=== PATIENT | female | born 1950 | race Caucasian/White ===

== ENCOUNTER 2016-11-27 04:49 | Emergency (ER) | payer MEDICARE ==
[~2016-11-27] VITALS: Ht 157.5 cm; Wt 63.6 kg
[~2016-11-27 04:49] MED LIST: ASPERCREME1 EACH TP; ASPIRIN 32325 MG/TAB PO; B-COMPLEX VITAM1 TAB PO; BACTRIM DS 8001 TAB PO; BENADRYL; CEFTIN500 MG PO; CIPRO 500MG TA500 MG PO; CO Q-1050 MG; COENZYME Q-1010 MG PO; DARVOCET-N-101 UDTAB PO; FLEXERIL 1010 MG/TAB PO; FLEXERIL10 MG PO; HYDROCODONE/APAP; LEVAQUIN 5500 MG/TA1 PO; LORTAB 5/500 501 TAB; MACROBID 1100 MG/CAP; MACROBID 1100 MG/CAP PO; MEDROL; MVI; NAPROSYN500 MG PO; NO HOME MEDICATIONS; NORCO 325 MG-51 TAB PO; NORCO 325 MG-7.1 TAB PO; OMEGA 31000 MG PO; PHENERGAN 25 TA25 MG PO; PHENERGAN25 MG RC; PREDNISONE20 MG PO; PROBIOTIC FORMU1 CAP PO; PROTONIX 40MG T40 MG PO; ULTRAM 50MG TAB50 MG PO; VIT C; VITAMIN B COMPL1 T16 PO; VITAMIN C BUFF500 MG PO; VITAMIN C PUR1000 MG PO; VITAMIN C500 MG PO; VITAMINC1000TA PO; [UNRECOGNIZED DRUG - CODE]; [UNRECOGNIZED DRUG - OTHER]
[2016-11-27 04:50] VITALS: TEMP 98
[2016-11-27 05:40] LABS: BASO # 0.1 (0.0-0.2); BASO % 0.5 % (0.0-2.0); EOS # 0.2 (0.0-0.7); EOS % 1.9 % (0-4.0); GRAN # 4.8 (1.4-6.5); GRAN % 50.8 % (42.2-75.2); HEMATOCRIT 40.1 % (37.0-47.0); LYMPH # 3.2 (1.2-3.4); MEAN CELL VOLUME 91 fl (80.0-100.0); MEAN CORPUSCULAR HEMOGLOBIN 29 pg (27.0-31.0); MEAN CORPUSCULAR HGB CONC 32 g/dl (33.0-37.0); MEAN PLATELET VOLUME 9.1 fl (7.4-10.4); MONO # 1.2 (0.1-0.6); MONO % 12.4 % (1.7-9.3); PLATELET COUNT 260 K/mm3 (130-400); RED BLOOD COUNT 4.42 M/mm3 (4.10-5.30); REDCELL DISTRIBUTION WIDTH-CV 12.7 % (11.5-14.5); WHITE BLOOD COUNT 9.4 K/mm3 (4.8-10.8)
[2016-11-27 05:53] LABS: ADJUSTED CALCIUM 9.2 mg/dL (8.4-10.2); ALBUMIN 4.3 gm/dL (3.5-5.0); BILIRUBIN,TOTAL 0.6 mg/dL (0.0-1.0); CALCIUM 9.4 mg/dL (8.4-10.2); CREATININE, serum 0.83 mg/dL (0.52-1.25)
[2016-11-27 07:13] VITALS: BP 125/66; PULSE 60
== END 2016-11-27 07:13 | disposition home or self-care (01) ==
LOC: COL.ER 04:49
PROVIDERS: Emergency Medicine
DX: M62.838 Other muscle spasm (principal); M54.5 Low back pain

== ENCOUNTER 2016-12-20 08:43 | Emergency (ER) | payer SELFPAY ==
[~2016-12-20] VITALS: Ht 157.5 cm; Wt 64.1 kg
[2016-12-20 08:44] VITALS: BP 130/73; TEMP 98.3
[2016-12-20 10:21] VITALS: PULSE 64
== END 2016-12-20 10:15 | disposition home or self-care (01) ==
LOC: COL.ER 08:43
DX: M23.91 Unspecified internal derangement of right knee (principal); Z86.711 Personal history of pulmonary embolism; Z86.718 Personal history of other venous thrombosis and embolism; Z86.72 Personal history of thrombophlebitis; Z79.82 Long term (current) use of aspirin; Z98.51 Tubal ligation status; Z98.890 Other specified postprocedural states
CPT/HCPCS: J1885

== ENCOUNTER → 2016-12-22 | Outpatient (CLI) | payer SELFPAY | LOC: COL.RAD 13:46 | DX: M25.561 Pain in right knee (principal); M25.461 Effusion, right knee ==

== ENCOUNTER 2018-03-20 08:10 | Emergency (ER) | payer MEDICARE ==
[~2018-03-20] VITALS: Ht 157.5 cm; Wt 63.6 kg
[2018-03-20 08:19] VITALS: TEMP 98.1
[2018-03-20 08:40] LABS: BASO % 0.2 % (0.0-2.0); EOS % 0.1 % (0-4.0); GRAN # 13.2 (1.4-6.5); GRAN % 81.6 % (42.2-75.2); HEMATOCRIT 43.5 % (37.0-47.0); HEMOGLOBIN 14.2 g/dl (12.5-16.0); LYMPH # 1.8 (1.2-3.4); LYMPH % 11.2 % (20.0-51.0); MEAN CELL VOLUME 88 fl (80.0-100.0); MEAN CORPUSCULAR HEMOGLOBIN 29 pg (27.0-31.0); MEAN CORPUSCULAR HGB CONC 33 g/dl (33.0-37.0); MEAN PLATELET VOLUME 9.3 fl (7.4-10.4); MONO % 6.3 % (1.7-9.3); PLATELET COUNT 243 K/mm3 (130-400); RED BLOOD COUNT 4.94 M/mm3 (4.10-5.30); REDCELL DISTRIBUTION WIDTH-CV 13.2 % (11.5-14.5)
[2018-03-20 08:45] LABS: PROTHROMBIN TIME 11.4 SECONDS (9.7-12.8)
[2018-03-20 08:48] LABS: PARTIAL THROMBOPLASTIN TIME 28.7 SECONDS (26.0-37.0)
[2018-03-20 08:50] LABS: ALBUMIN 4.5 gm/dL (3.5-5.0); BILIRUBIN,TOTAL 0.6 mg/dL (0.0-1.0); CALCIUM 9.6 mg/dL (8.4-10.2); CREATININE, serum 0.7 mg/dL (0.52-1.25); TOTAL PROTEIN 8.5 gm/dL (6.4-8.2)
[2018-03-20 09:37] VITALS: BP 105/66; PULSE 52
== END 2018-03-20 09:40 | disposition short-term general hospital (02) ==
LOC: COL.ER 08:10
PROVIDERS: Family Medicine
DX: I21.4 Non-ST elevation (NSTEMI) myocardial infarction (principal)
CPT/HCPCS: J1644; J7030

== ENCOUNTER 2018-03-25 21:33 | Emergency (ER) | payer MEDICARE ==
[~2018-03-25] VITALS: Ht 157.5 cm; Wt 61.8 kg
[2018-03-25 21:36] VITALS: BP 123/71; TEMP 97.9
[2018-03-25 22:17] VITALS: PULSE 77
== END 2018-03-25 22:12 | disposition home or self-care (01) ==
LOC: COL.ER 21:33
DX: I80.9 Phlebitis and thrombophlebitis of unspecified site (principal); I25.10 Atherosclerotic heart disease of native coronary artery without angina pectoris

== ENCOUNTER 2018-03-27 04:22 | Emergency (ER) | payer MEDICARE ==
[~2018-03-27] VITALS: Ht 160 cm; Wt 60.9 kg
[2018-03-27 04:28] VITALS: TEMP 96.9
[2018-03-27 04:37] LABS: HEMATOCRIT 39.5 % (37.0-47.0); MEAN CELL VOLUME 88 fl (80.0-100.0); MEAN CORPUSCULAR HEMOGLOBIN 29 pg (27.0-31.0); MEAN CORPUSCULAR HGB CONC 33 g/dl (33.0-37.0); MEAN PLATELET VOLUME 9.1 fl (7.4-10.4); PLATELET COUNT 340 K/mm3 (130-400); RED BLOOD COUNT 4.49 M/mm3 (4.10-5.30); REDCELL DISTRIBUTION WIDTH-CV 13.1 % (11.5-14.5)
[2018-03-27] MEDS ORDERED: LIPITOR 80MG80 MG PO (04:40)
[2018-03-27] MEDS ORDERED: ASPIRIN 81M81 MG/TA2 PO (04:40)
[2018-03-27] MEDS ORDERED: LASIX 20MG TABL20 MG PO (04:41)
[2018-03-27] MEDS ORDERED: ZESTRIL2.5 MG PO (04:41)
[2018-03-27] MEDS ORDERED: TOPROL XL 25MG25 MG PO (04:41)
[2018-03-27] MEDS ORDERED: K-DUR 10 MEQ T10 MEQ PO (04:42)
[2018-03-27] MEDS ORDERED: NITROSTAT0.4 MG/TAB SL (04:42)
[2018-03-27] MEDS ORDERED: PROMETHAZINE12.5 M5 PO (04:42)
[2018-03-27] MEDS ORDERED: CRANBERRY FRUI425 MG PO (04:43)
[2018-03-27] MEDS ORDERED: VITAMINC1000TA (04:43)
[2018-03-27] MEDS ORDERED: BRILINTA90 MG PO (04:43)
[2018-03-27 04:45] LABS: PROTHROMBIN TIME 11.8 SECONDS (9.7-12.8)
[2018-03-27 04:47] LABS: BILIRUBIN,TOTAL 0.7 mg/dL (0.0-1.0); CALCIUM 9.1 mg/dL (8.4-10.2); CREATININE, serum 0.85 mg/dL (0.52-1.25); PARTIAL THROMBOPLASTIN TIME 33.9 SECONDS (26.0-37.0); TOTAL PROTEIN 7.8 gm/dL (6.4-8.2)
[2018-03-27 04:56] LABS: C-REACTIVE PROTEIN 2.9 mg/dL (0.0-0.9)
[2018-03-27 05:06] LABS: TROPONIN-I 4.5 ng/mL (0.000-0.035)
[2018-03-27 05:08] LABS: ERYTHROCYTE SEDIMENTATION RATE 21 mm/hr (0-30)
[2018-03-27 05:22] LABS: BAND 11 % (0-10); EOSINOPHIL 4 % (0-4); LYMPHOCYTE 23 % (20.0-51.0); METAMYELOCYTE 3 % (0-0); NEUTROPHILS 48 % (42.0-75.2)
[2018-03-27 05:25] LABS: ANISOCYTOSIS 2+; OVALOCYTES 1+; PLATELET ESTIMATE NORMAL (NORMAL); POIKILOCYTOSIS 2+
[2018-03-27 08:26] VITALS: BP 110/66; PULSE 71
== END 2018-03-27 08:48 | disposition short-term general hospital (02) ==
LOC: COL.ER 04:22
PROVIDERS: Emergency Medicine
DX: I31.9 Disease of pericardium, unspecified (principal); Z95.5 Presence of coronary angioplasty implant and graft; Z79.82 Long term (current) use of aspirin
CPT/HCPCS: J1200; J2930; Q9967

== ENCOUNTER 2018-03-31 21:20 | Emergency (ER) | payer MEDICARE ==
[~2018-03-31] VITALS: Ht 157.5 cm; Wt 61.8 kg
[~2018-03-31 21:20] MED LIST changes: +ASPIRIN 81M81 MG/TA2 PO; +BRILINTA90 MG PO; +CRANBERRY FRUI425 MG PO; +K-DUR 10 MEQ T10 MEQ PO; +LASIX 20MG TABL20 MG PO; +LIPITOR 80MG80 MG PO; +NITROSTAT0.4 MG/TAB SL; +PROMETHAZINE12.5 M5 PO; +TOPROL XL 25MG25 MG PO; +VITAMINC1000TA; +ZESTRIL2.5 MG PO
[2018-03-31 21:28] VITALS: TEMP 98
[2018-03-31 21:46] LABS: HEMATOCRIT 38.9 % (37.0-47.0); HEMOGLOBIN 12.9 g/dl (12.5-16.0); MEAN CELL VOLUME 87 fl (80.0-100.0); MEAN CORPUSCULAR HEMOGLOBIN 29 pg (27.0-31.0); MEAN CORPUSCULAR HGB CONC 33 g/dl (33.0-37.0); MEAN PLATELET VOLUME 9.1 fl (7.4-10.4); PLATELET COUNT 406 K/mm3 (130-400); RED BLOOD COUNT 4.46 M/mm3 (4.10-5.30); REDCELL DISTRIBUTION WIDTH-CV 13.1 % (11.5-14.5)
[2018-03-31 21:51] LABS: INR 1.1 (0.8-3.0)
[2018-03-31 21:54] LABS: PARTIAL THROMBOPLASTIN TIME 31.3 SECONDS (26.0-37.0)
[2018-03-31 21:59] LABS: ALBUMIN 4.2 gm/dL (3.5-5.0); BILIRUBIN,TOTAL 0.5 mg/dL (0.0-1.0); CALCIUM 9.2 mg/dL (8.4-10.2); CREATININE, serum 0.84 mg/dL (0.52-1.25); POTASSIUM 4.1 mmol/L (3.4-5.0)
[2018-03-31] MEDS ORDERED: COLCRYS0.6 MG PO (22:09)
[2018-03-31 22:10] LABS: BAND 2 % (0-10); EOSINOPHIL 8 % (0-4); LYMPHOCYTE 31 % (20.0-51.0); NEUTROPHILS 53 % (42.0-75.2)
[2018-03-31 22:11] LABS: PLATELET ESTIMATE INCREASED (NORMAL)
[2018-03-31 22:15] LABS: TROPONIN-I 0.469 ng/mL (0.000-0.035)
[2018-04-01 00:39] VITALS: BP 105/65; PULSE 70
== END 2018-04-01 01:11 | disposition home or self-care (01) ==
LOC: COL.ER 21:20
PROVIDERS: Family Medicine
DX: R07.89 Other chest pain (principal); R00.2 Palpitations; Z95.5 Presence of coronary angioplasty implant and graft; Z79.82 Long term (current) use of aspirin
CPT/HCPCS: J7040

== ENCOUNTER 2018-04-02 04:31 | Emergency (ER) | payer MEDICARE ==
[~2018-04-02] VITALS: Ht 157.5 cm; Wt 61.8 kg
[~2018-04-02 04:31] MED LIST changes: +COLCRYS0.6 MG PO
[2018-04-02 04:41] VITALS: TEMP 97.9
[2018-04-02 05:13] LABS: BASO # 0.1 (0.0-0.2); BASO % 0.5 % (0.0-2.0); EOS # 0.4 (0.0-0.7); EOS % 3.2 % (0-4.0); GRAN # 7.4 (1.4-6.5); GRAN % 56.7 % (42.2-75.2); HEMATOCRIT 38.1 % (37.0-47.0); HEMOGLOBIN 12.5 g/dl (12.5-16.0); LYMPH # 3.6 (1.2-3.4); LYMPH % 27.8 % (20.0-51.0); MEAN CELL VOLUME 89 fl (80.0-100.0); MEAN CORPUSCULAR HEMOGLOBIN 29 pg (27.0-31.0); MEAN CORPUSCULAR HGB CONC 33 g/dl (33.0-37.0); MEAN PLATELET VOLUME 9.1 fl (7.4-10.4); MONO # 1.4 (0.1-0.6); PLATELET COUNT 372 K/mm3 (130-400); RED BLOOD COUNT 4.29 M/mm3 (4.10-5.30); REDCELL DISTRIBUTION WIDTH-CV 13.1 % (11.5-14.5)
[2018-04-02 05:28] LABS: ALBUMIN 3.9 gm/dL (3.5-5.0); BILIRUBIN,TOTAL 0.4 mg/dL (0.0-1.0); CALCIUM 8.7 mg/dL (8.4-10.2); CREATININE, serum 0.79 mg/dL (0.52-1.25); TOTAL PROTEIN 7.5 gm/dL (6.4-8.2)
[2018-04-02 05:41] LABS: TROPONIN-I 0.259 ng/mL (0.000-0.035)
[2018-04-02 06:55] VITALS: BP 120/80; PULSE 65
== END 2018-04-02 07:04 | disposition home or self-care (01) ==
LOC: COL.ER 04:31
PROVIDERS: Emergency Medicine
DX: M79.10 Myalgia, unspecified site (principal); T50.905A Adverse effect of unspecified drugs, medicaments and biological substances, initial encounter; I25.10 Atherosclerotic heart disease of native coronary artery without angina pectoris; E78.5 Hyperlipidemia, unspecified; I25.2 Old myocardial infarction; Z79.82 Long term (current) use of aspirin; Z95.5 Presence of coronary angioplasty implant and graft
CPT/HCPCS: J7040

== ENCOUNTER 2018-04-02 23:03 | Emergency (ER) | payer MEDICARE ==
[2018-04-02 23:05] VITALS: TEMP 97.3
[2018-04-02 23:54] LABS: COLLECTION METHOD CLEAN CATCH
[2018-04-02 23:57] LABS: HEMATOCRIT 39.5 % (37.0-47.0); HEMOGLOBIN 12.8 g/dl (12.5-16.0); MEAN CELL VOLUME 90 fl (80.0-100.0); MEAN CORPUSCULAR HEMOGLOBIN 29 pg (27.0-31.0); MEAN CORPUSCULAR HGB CONC 32 g/dl (33.0-37.0); MEAN PLATELET VOLUME 9.2 fl (7.4-10.4); PLATELET COUNT 391 K/mm3 (130-400); REDCELL DISTRIBUTION WIDTH-CV 13.2 % (11.5-14.5)
[2018-04-03 00:09] LABS: MUCOUS Present /lpf; PH 5 (5-8); SQUAMOUS EPITHELIAL 0-2 /hpf; URINE APPEARANCE Hazy; URINE BACTERIA None Seen /hpf; URINE BILIRUBIN Negative (NEGATIVE); URINE BLOOD Negative (NEGATIVE); URINE COLOR Yellow; URINE GLUCOSE Negative (NEGATIVE); URINE KETONE Negative (NEGATIVE); URINE LEUKOCYTE ESTERASE 1+ (NEGATIVE); URINE NITRATE Negative (NEGATIVE); URINE PROTEIN(semi-quant) Negative (NEGATIVE); URINE RBC 0-2 /hpf
[2018-04-03 00:28] VITALS: BP 105/83; PULSE 69
== END 2018-04-03 00:28 | disposition home or self-care (01) ==
LOC: COL.ER 23:03
PROVIDERS: Emergency Medicine
DX: L98.8 Other specified disorders of the skin and subcutaneous tissue (principal); I25.10 Atherosclerotic heart disease of native coronary artery without angina pectoris; Z79.82 Long term (current) use of aspirin; Z95.5 Presence of coronary angioplasty implant and graft

== ENCOUNTER 2018-04-04 20:03 | Observation (INO) | payer MEDICARE ==
[~2018-04-04] VITALS: Ht 157.5 cm; Wt 62.2 kg
[2018-04-04 20:26] LABS: BASO # 0.1 (0.0-0.2); BASO % 0.4 % (0.0-2.0); EOS # 0.5 (0.0-0.7); EOS % 3.6 % (0-4.0); GRAN # 6.8 (1.4-6.5); GRAN % 54.2 % (42.2-75.2); HEMATOCRIT 38.5 % (37.0-47.0); HEMOGLOBIN 12.6 g/dl (12.5-16.0); LYMPH # 3.5 (1.2-3.4); LYMPH % 27.8 % (20.0-51.0); MEAN CELL VOLUME 88 fl (80.0-100.0); MEAN CORPUSCULAR HEMOGLOBIN 29 pg (27.0-31.0); MEAN CORPUSCULAR HGB CONC 33 g/dl (33.0-37.0); MEAN PLATELET VOLUME 9.2 fl (7.4-10.4); MONO # 1.7 (0.1-0.6); MONO % 13.4 % (1.7-9.3); PLATELET COUNT 357 K/mm3 (130-400); RED BLOOD COUNT 4.37 M/mm3 (4.10-5.30); REDCELL DISTRIBUTION WIDTH-CV 13.2 % (11.5-14.5)
[2018-04-04 20:44] LABS: ALBUMIN 4.2 gm/dL (3.5-5.0); BILIRUBIN,TOTAL 0.5 mg/dL (0.0-1.0); CALCIUM 9.3 mg/dL (8.4-10.2); CREATININE, serum 0.85 mg/dL (0.52-1.25); POTASSIUM 4.3 mmol/L (3.4-5.0); TOTAL PROTEIN 8.1 gm/dL (6.4-8.2)
[2018-04-04 20:59] LABS: TROPONIN-I 0.112 ng/mL (0.000-0.035)
[2018-04-05 01:43] VITALS: BP 98/57; PULSE 56; TEMP 97.4
[2018-04-05 02:11] LABS: MAGNESIUM 2.2 mg/dL (1.6-2.3)
[2018-04-05 03:06] LABS: INR 1.1 (0.8-3.0); PROTHROMBIN TIME 12.1 SECONDS (9.7-12.8)
[2018-04-05 03:09] LABS: PARTIAL THROMBOPLASTIN TIME 32.6 SECONDS (26.0-37.0)
[2018-04-05 04:38] VITALS: BP 72/43; PULSE 55; TEMP 97.7
[2018-04-05 06:17] LABS: BASO # 0.1 (0.0-0.2); BASO % 0.5 % (0.0-2.0); EOS # 0.4 (0.0-0.7); EOS % 4.4 % (0-4.0); GRAN % 50.6 % (42.2-75.2); HEMOGLOBIN 12.2 g/dl (12.5-16.0); LYMPH % 30.5 % (20.0-51.0); MEAN CELL VOLUME 89 fl (80.0-100.0); MEAN CORPUSCULAR HEMOGLOBIN 30 pg (27.0-31.0); MEAN CORPUSCULAR HGB CONC 33 g/dl (33.0-37.0); MEAN PLATELET VOLUME 9.5 fl (7.4-10.4); MONO # 1.3 (0.1-0.6); MONO % 13.6 % (1.7-9.3); PLATELET COUNT 320 K/mm3 (130-400); RED BLOOD COUNT 4.13 M/mm3 (4.10-5.30); REDCELL DISTRIBUTION WIDTH-CV 13.3 % (11.5-14.5)
[2018-04-05 06:22] LABS: HEMATOCRIT 36.7 % (37.0-47.0)
[2018-04-05 06:31] VITALS: BP 102/65
[2018-04-05 06:36] LABS: ALBUMIN 3.6 gm/dL (3.5-5.0); BILIRUBIN,TOTAL 0.5 mg/dL (0.0-1.0); CHOLESTEROL RISK RATIO 3.5; CREATININE, serum 0.77 mg/dL (0.52-1.25); POTASSIUM 4.2 mmol/L (3.4-5.0)
[2018-04-05 07:33] VITALS: BP 98/64; PULSE 62; TEMP 98
[2018-04-05 10:58] VITALS: BP 87/47; PULSE 67; TEMP 98.6
[2018-04-05 16:21] VITALS: BP 92/61; PULSE 64; TEMP 98.2
== END 2018-04-05 17:32 | disposition home or self-care (01) ==
LOC: COL.ER 20:03 → MEDICAL 23:49
PROVIDERS: Emergency Medicine; Nurse Practitioner Family; ADMIT Hospitalist
DX: R07.9 Chest pain, unspecified (principal); N93.9 Abnormal uterine and vaginal bleeding, unspecified; I25.10 Atherosclerotic heart disease of native coronary artery without angina pectoris; I25.2 Old myocardial infarction; I08.1 Rheumatic disorders of both mitral and tricuspid valves; Z79.82 Long term (current) use of aspirin; Z95.5 Presence of coronary angioplasty implant and graft; Z83.3 Family history of diabetes mellitus; Z88.0 Allergy status to penicillin; Z88.1 Allergy status to other antibiotic agents; Z88.3 Allergy status to other anti-infective agents; Z88.5 Allergy status to narcotic agent; Z88.7 Allergy status to serum and vaccine; Z88.8 Allergy status to other drugs, medicaments and biological substances
CPT/HCPCS: G0378; J1200; J7030; J7040; Q9967

== ENCOUNTER 2018-04-08 02:18 | Emergency (ER) | payer MEDICARE ==
[~2018-04-08] VITALS: Ht 157.5 cm; Wt 60.9 kg
[2018-04-08 02:22] VITALS: BP 163/60; TEMP 97.5
[2018-04-08 03:13] VITALS: PULSE 65
[2018-04-09] MEDS ORDERED: ULTRAM 50MG TAB50 MG PO (08:05)
== END 2018-04-08 03:15 | disposition home or self-care (01) ==
LOC: COL.ER 02:18
DX: L98.8 Other specified disorders of the skin and subcutaneous tissue (principal); I25.10 Atherosclerotic heart disease of native coronary artery without angina pectoris; Z79.82 Long term (current) use of aspirin

== ENCOUNTER 2018-04-09 05:59 | Emergency (ER) | payer MEDICARE ==
[~2018-04-09] VITALS: Ht 157.5 cm; Wt 60.0 kg
[2018-04-09 06:07] VITALS: TEMP 97.8
[2018-04-09] MEDS ORDERED: ULTRAM 50MG TAB50 MG PO (08:05)
[2018-04-09 08:36] VITALS: BP 100/61; PULSE 62
== END 2018-04-09 08:37 | disposition home or self-care (01) ==
LOC: COL.ER 05:59
DX: G62.9 Polyneuropathy, unspecified (principal); T50.4X5A Adverse effect of drugs affecting uric acid metabolism, initial encounter; I25.10 Atherosclerotic heart disease of native coronary artery without angina pectoris; Z79.82 Long term (current) use of aspirin

== ENCOUNTER 2018-04-13 05:08 | Inpatient (IN) | payer MEDICARE ==
[~2018-04-13] VITALS: Ht 157.5 cm; Wt 61.5 kg
[2018-04-13] VITALS (176 sets, daily range): BP systolic 101–107; BP diastolic 60–68; PULSE 76–82; TEMP 98–98.3; O2SAT 94–100
[2018-04-13 05:31] LABS: HEMOGLOBIN 11.6 g/dl (12.5-16.0); MEAN CELL VOLUME 89 fl (80.0-100.0); MEAN CORPUSCULAR HEMOGLOBIN 29 pg (27.0-31.0); MEAN CORPUSCULAR HGB CONC 33 g/dl (33.0-37.0); MEAN PLATELET VOLUME 9.7 fl (7.4-10.4); PLATELET COUNT 225 K/mm3 (130-400); RED BLOOD COUNT 3.96 M/mm3 (4.10-5.30); REDCELL DISTRIBUTION WIDTH-CV 13.8 % (11.5-14.5)
[2018-04-13 05:36] LABS: PROTHROMBIN TIME 11.6 SECONDS (9.7-12.8)
[2018-04-13 05:38] LABS: HEMATOCRIT 35.2 % (37.0-47.0)
[2018-04-13 05:39] LABS: PARTIAL THROMBOPLASTIN TIME 29.1 SECONDS (26.0-37.0)
[2018-04-13 05:42] LABS: ALBUMIN 3.6 gm/dL (3.5-5.0); CALCIUM 8.4 mg/dL (8.4-10.2); CREATININE, serum 0.77 mg/dL (0.52-1.25); POTASSIUM 3.7 mmol/L (3.4-5.0); TOTAL PROTEIN 6.9 gm/dL (6.4-8.2)
[2018-04-13] MEDS ORDERED: CRANBERRY500 M3 PO (05:48)
[2018-04-13] MEDS ORDERED: VITAMIN C500 MG PO (05:58)
[2018-04-13] MEDS ORDERED: AMBIEN 5MG TABLE5 MG PO (05:59)
[2018-04-13 06:09] LABS: TROPONIN-I 9.48 ng/mL (0.000-0.035)
[2018-04-13 06:57] LABS: BAND 1 % (0-10); EOSINOPHIL 1 % (0-4); LYMPHOCYTE 26 % (20.0-51.0); NEUTROPHILS 60 % (42.0-75.2); PLATELET ESTIMATE NORMAL (NORMAL)
--- NOTE | 2018-04-13 09:09 | NUR ---
Pt AAOx3, ambulated from ER cart to bed without difficulty, bruises noted on left back and right upper chest. MD Oneida has seen pt and reviewed cath images from [place]. Pt states dropped off pt outside and did not walk pt inside. Pt expresess concern of "not supportive at all. Last time I was in hospital I could just . And was making rude comments about my bout of urinary incontinence". Pt denies bruises are from . Pt did state she slept on floor by fireplace last night "because I could not get warm". Thuy,nursing tech at bedside performing ECHO. Pt complaining of Left temporal headache that "I have never had before". Call light within reach, no further complaints at this time.
--- NOTE | 2018-04-13 13:11 | NUR ---
Pt arrived to room, denies pain, SOB, denies palpitations. Physical assessment completed and findings WNL. Pt on RA. INT to LW free fo redness, swelling. pt denies needs, lunch in front of her and call joe alfonso
--- NOTE | 2018-04-13 15:32 | NUR ---
SW and SW student met with patient to discuss discharge planning. Patient lives in [place] with her . 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 Patient reports her pcp is Dr Iraheta and that she obtains her medications from [facility]. Patient reported some issues with her and how he has been treating her. She said that she has been taking measures to protect herself. She completed a DPOA-HC and put her children on it and reports she has been putting money away for herself. Patient has 8 adult children and reports they are supportive as well as members of her nondenominational. Patient does not feel that she needs anything else at fl. SW will continue to follow to assist if anything arises.
--- NOTE | 2018-04-13 17:47 | NUR ---
Pt had uneventful shift since arriving to unit, vitals stable, she has walked hallway, sat in waiting room reading, and chatted with friends admitted down the gresh[place]. Pt took a shower and ate well. Denies SOB, chest pain, palpitations, etc. No needs at this time.
--- NOTE | 2018-04-13 18:44 | NUR ---
Spoke with Dr Platt who will follow this pt and contact Dr Mohamud, per pt request
--- NOTE | 2018-04-13 18:52 | NUR ---
Report given to Serena GARCIA, pt talking on phone, setting up her dinner, no apparent needs.
--- NOTE | 2018-04-13 19:38 | NUR ---
Patient ambulatory, walking halls but has since returned to room. Denies pain, VSS. IV site shows no redness/edema. Alert and oriented x4. No c/o chest pain, dyspnea. Requesting Ambien with other evening medications to help sleep tonight. No further needs at this time.
[2018-04-14 00:24] VITALS: BP 106/74; PULSE 75; TEMP 98
[2018-04-14 03:40] VITALS: BP 95/59; PULSE 78; TEMP 98.2
--- NOTE | 2018-04-14 05:06 | NUR ---
Pt slept on/off last night. Showered twice last night. No reports of chest pain. No further needs at this time.
[2018-04-14 06:41] LABS: BASO % 0.2 % (0.0-2.0); EOS # 0.2 (0.0-0.7); GRAN # 10.7 (1.4-6.5); GRAN % 64.7 % (42.2-75.2); HEMOGLOBIN 10.9 g/dl (12.5-16.0); LYMPH # 3.3 (1.2-3.4); LYMPH % 19.6 % (20.0-51.0); MEAN CELL VOLUME 89 fl (80.0-100.0); MEAN CORPUSCULAR HEMOGLOBIN 29 pg (27.0-31.0); MEAN CORPUSCULAR HGB CONC 32 g/dl (33.0-37.0); MEAN PLATELET VOLUME 10.2 fl (7.4-10.4); MONO # 2.3 (0.1-0.6); MONO % 13.8 % (1.7-9.3); PLATELET COUNT 229 K/mm3 (130-400); RED BLOOD COUNT 3.77 M/mm3 (4.10-5.30); REDCELL DISTRIBUTION WIDTH-CV 13.9 % (11.5-14.5)
[2018-04-14 06:46] LABS: HEMATOCRIT 33.6 % (37.0-47.0)
[2018-04-14 06:47] LABS: ALBUMIN 3.4 gm/dL (3.5-5.0); BILIRUBIN,TOTAL 0.5 mg/dL (0.0-1.0); CREATININE, serum 0.67 mg/dL (0.52-1.25); TOTAL PROTEIN 6.9 gm/dL (6.4-8.2)
[2018-04-14 07:10] LABS: TROPONIN-I 3.59 ng/mL (0.000-0.035)
[2018-04-14 08:00] VITALS: BP 92/65; PULSE 79; TEMP 98
--- NOTE | 2018-04-14 10:00 | NUR ---
Pt assessment complete. Pt has student nurse caring for her this AM. Pt has been up walking hallways, she denies any chest pain or palpitations. No SOB. POC discussed with patient who verbalizes understanding. She denies needs at this time. Call light within reach.
--- NOTE | 2018-04-14 10:06 | NUR ---
First visit from the funeral service manager. No needs right now.
--- NOTE | 2018-04-14 13:39 | NUR ---
Primary nurse was assisted with [id number] patient care by [facility] ADM student Raya Quach and [facility] ADN instructor Freya Do RN-BC.
--- NOTE | 2018-04-14 14:29 | NUR ---
Discharge paperwork reviewed with patient, all questions answered at this time. Pt sent home with home meds from pharmacy as well as belongings from safe. IV dc'd from [facility], catheter tip intact. Pt walked out of facility.
[2018-04-16] MEDS ORDERED: MITIGARE0.6 MG (06:24)
[2018-04-16] MEDS ORDERED: LIPITOR 80MG80 MG PO (06:25)
== END 2018-04-14 14:31 | disposition home or self-care (01) | DRG 281 ==
LOC: COL.ER 05:08 → ICU 07:04 → MEDICAL 11:12 → ICU 11:12 → MEDICAL 13:08
PROVIDERS: Emergency Medicine; Physician Assistant; ADMIT Internal Medicine
DX: I21.A9 Other myocardial infarction type (principal); I42.9 Cardiomyopathy, unspecified; I50.22 Chronic systolic (congestive) heart failure; I11.0 Hypertensive heart disease with heart failure; I25.10 Atherosclerotic heart disease of native coronary artery without angina pectoris; Z95.5 Presence of coronary angioplasty implant and graft; D64.9 Anemia, unspecified; I27.20 Pulmonary hypertension, unspecified; I08.0 Rheumatic disorders of both mitral and aortic valves
CPT/HCPCS: 99239; J1200; J2930; J7030; Q9967

== ENCOUNTER 2018-04-20 01:21 | Emergency (ER) | payer MEDICARE ==
[~2018-04-20] VITALS: Ht 157.5 cm; Wt 56.4 kg
[~2018-04-20 01:21] MED LIST changes: +AMBIEN 5MG TABLE5 MG PO; +CRANBERRY500 M3 PO; +MITIGARE0.6 MG
[2018-04-20 01:28] VITALS: BP 118/76; TEMP 98.3
[2018-04-20 02:35] LABS: BASO # 0.1 (0.0-0.2); BASO % 0.4 % (0.0-2.0); EOS # 0.5 (0.0-0.7); EOS % 4.2 % (0-4.0); GRAN # 6.4 (1.4-6.5); GRAN % 57.8 % (42.2-75.2); HEMATOCRIT 36.7 % (37.0-47.0); HEMOGLOBIN 11.9 g/dl (12.5-16.0); LYMPH # 2.6 (1.2-3.4); LYMPH % 23.4 % (20.0-51.0); MEAN CELL VOLUME 91 fl (80.0-100.0); MEAN CORPUSCULAR HEMOGLOBIN 30 pg (27.0-31.0); MEAN CORPUSCULAR HGB CONC 32 g/dl (33.0-37.0); MEAN PLATELET VOLUME 9.4 fl (7.4-10.4); MONO # 1.5 (0.1-0.6); MONO % 13.3 % (1.7-9.3); PLATELET COUNT 256 K/mm3 (130-400); RED BLOOD COUNT 4.04 M/mm3 (4.10-5.30); REDCELL DISTRIBUTION WIDTH-CV 13.8 % (11.5-14.5)
[2018-04-20 02:45] LABS: ALBUMIN 3.7 gm/dL (3.5-5.0); BILIRUBIN,TOTAL 0.3 mg/dL (0.0-1.0); CALCIUM 9.1 mg/dL (8.4-10.2); CREATININE, serum 0.85 mg/dL (0.52-1.25); TOTAL PROTEIN 7.3 gm/dL (6.4-8.2)
[2018-04-20 02:57] LABS: TROPONIN-I 0.237 ng/mL (0.000-0.035)
[2018-04-20 04:24] VITALS: PULSE 68
== END 2018-04-20 04:24 | disposition home or self-care (01) ==
LOC: COL.ER 01:21
PROVIDERS: Physician Assistant
DX: I25.10 Atherosclerotic heart disease of native coronary artery without angina pectoris (principal); Z95.5 Presence of coronary angioplasty implant and graft; Z79.82 Long term (current) use of aspirin

== ENCOUNTER 2018-04-20 22:49 | Emergency (ER) | payer MEDICARE ==
[~2018-04-20] VITALS: Ht 157.5 cm; Wt 60.5 kg
[2018-04-20 23:02] VITALS: TEMP 97.9
[2018-04-21 00:28] LABS: BASO % 0.3 % (0.0-2.0); EOS # 0.4 (0.0-0.7); EOS % 3.7 % (0-4.0); GRAN # 6.9 (1.4-6.5); GRAN % 58.3 % (42.2-75.2); HEMOGLOBIN 11.7 g/dl (12.5-16.0); LYMPH # 2.8 (1.2-3.4); LYMPH % 23.5 % (20.0-51.0); MEAN CELL VOLUME 90 fl (80.0-100.0); MEAN CORPUSCULAR HEMOGLOBIN 29 pg (27.0-31.0); MEAN CORPUSCULAR HGB CONC 32 g/dl (33.0-37.0); MEAN PLATELET VOLUME 9.2 fl (7.4-10.4); MONO # 1.6 (0.1-0.6); MONO % 13.4 % (1.7-9.3); PLATELET COUNT 265 K/mm3 (130-400); RED BLOOD COUNT 4.03 M/mm3 (4.10-5.30); REDCELL DISTRIBUTION WIDTH-CV 13.7 % (11.5-14.5)
[2018-04-21 00:35] LABS: ALBUMIN 3.9 gm/dL (3.5-5.0); BILIRUBIN,TOTAL 0.3 mg/dL (0.0-1.0); CALCIUM 9.2 mg/dL (8.4-10.2); CREATININE, serum 0.77 mg/dL (0.52-1.25); MAGNESIUM 2.2 mg/dL (1.6-2.3); POTASSIUM 3.9 mmol/L (3.4-5.0); TOTAL PROTEIN 7.5 gm/dL (6.4-8.2)
[2018-04-21 00:48] LABS: TROPONIN-I 0.142 ng/mL (0.000-0.035)
[2018-04-21 01:00] LABS: BAND 4 % (0-10); EOSINOPHIL 3 % (0-4); LYMPHOCYTE 20 % (20.0-51.0); NEUTROPHILS 61 % (42.0-75.2); PLATELET ESTIMATE NORMAL (NORMAL)
[2018-04-21 01:03] LABS: HEMATOCRIT 36.1 % (37.0-47.0)
[2018-04-21 01:42] LABS: TSH w REFLEX 4.29 uIU/mL (0.465-4.680)
[2018-04-21 02:07] VITALS: BP 113/68; PULSE 85
== END 2018-04-21 02:20 | disposition home or self-care (01) ==
LOC: COL.ER 22:49
PROVIDERS: Emergency Medicine
DX: R55 Syncope and collapse (principal); I25.10 Atherosclerotic heart disease of native coronary artery without angina pectoris; Z95.5 Presence of coronary angioplasty implant and graft

== ENCOUNTER 2018-04-23 19:11 | Emergency (ER) | payer MEDICARE ==
[~2018-04-23] VITALS: Ht 157.5 cm; Wt 60.5 kg
[2018-04-23 19:15] VITALS: TEMP 98.3
[2018-04-23 19:58] LABS: BASO % 0.4 % (0.0-2.0); EOS # 0.3 (0.0-0.7); EOS % 2.8 % (0-4.0); GRAN # 6.4 (1.4-6.5); GRAN % 57.4 % (42.2-75.2); HEMOGLOBIN 11.4 g/dl (12.5-16.0); LYMPH # 3.2 (1.2-3.4); LYMPH % 29.2 % (20.0-51.0); MEAN CELL VOLUME 90 fl (80.0-100.0); MEAN CORPUSCULAR HEMOGLOBIN 29 pg (27.0-31.0); MEAN CORPUSCULAR HGB CONC 33 g/dl (33.0-37.0); MEAN PLATELET VOLUME 9.2 fl (7.4-10.4); MONO # 1.1 (0.1-0.6); MONO % 9.5 % (1.7-9.3); PLATELET COUNT 270 K/mm3 (130-400); RED BLOOD COUNT 3.92 M/mm3 (4.10-5.30); REDCELL DISTRIBUTION WIDTH-CV 13.9 % (11.5-14.5)
[2018-04-23 20:07] LABS: ALBUMIN 3.7 gm/dL (3.5-5.0); BILIRUBIN,TOTAL 0.3 mg/dL (0.0-1.0); CALCIUM 9.2 mg/dL (8.4-10.2); CREATININE, serum 1.03 mg/dL (0.52-1.25); POTASSIUM 3.9 mmol/L (3.4-5.0); TOTAL PROTEIN 7.1 gm/dL (6.4-8.2)
[2018-04-23 20:08] LABS: HEMATOCRIT 35.1 % (37.0-47.0)
[2018-04-23 20:33] LABS: TROPONIN-I 0.043 ng/mL (0.000-0.035)
[2018-04-23 21:02] VITALS: BP 114/73; PULSE 73
== END 2018-04-23 21:02 | disposition home or self-care (01) ==
LOC: COL.ER 19:11
PROVIDERS: Emergency Medicine
DX: R00.2 Palpitations (principal); I25.10 Atherosclerotic heart disease of native coronary artery without angina pectoris; Z95.9 Presence of cardiac and vascular implant and graft, unspecified; Z79.82 Long term (current) use of aspirin

== ENCOUNTER 2018-04-29 02:00 | Emergency (ER) | payer MEDICARE ==
[~2018-04-29] VITALS: Ht 157.5 cm; Wt 60.0 kg
[2018-04-29 02:06] VITALS: BP 112/72; PULSE 67; TEMP 97.3
[2018-04-29] MEDS ORDERED: PLAVIX 75MG TAB75 MG PO (02:12)
== END 2018-04-29 02:26 | disposition home or self-care (01) ==
LOC: COL.ER 02:00
DX: S60.410A Abrasion of right index finger, initial encounter (principal); I25.10 Atherosclerotic heart disease of native coronary artery without angina pectoris; Z86.718 Personal history of other venous thrombosis and embolism; W55.03XA Scratched by cat, initial encounter; Y92.009 Unspecified place in unspecified non-institutional (private) residence as the place of occurrence of the external cause

== ENCOUNTER 2018-04-30 22:13 | Emergency (ER) | payer MEDICARE ==
[~2018-04-30] VITALS: Ht 157.5 cm; Wt 60.5 kg
[~2018-04-30 22:13] MED LIST changes: +PLAVIX 75MG TAB75 MG PO
[2018-04-30 22:25] VITALS: TEMP 97.1
[2018-05-01 00:53] LABS: BASO # 0.1 (0.0-0.2); BASO % 0.5 % (0.0-2.0); EOS # 0.2 (0.0-0.7); EOS % 2.5 % (0-4.0); GRAN # 4.9 (1.4-6.5); GRAN % 53.4 % (42.2-75.2); HEMATOCRIT 37.1 % (37.0-47.0); HEMOGLOBIN 11.7 g/dl (12.5-16.0); LYMPH # 2.8 (1.2-3.4); LYMPH % 30.7 % (20.0-51.0); MEAN CELL VOLUME 93 fl (80.0-100.0); MEAN CORPUSCULAR HEMOGLOBIN 29 pg (27.0-31.0); MEAN CORPUSCULAR HGB CONC 32 g/dl (33.0-37.0); MEAN PLATELET VOLUME 9.8 fl (7.4-10.4); MONO # 1.2 (0.1-0.6); MONO % 12.4 % (1.7-9.3); PLATELET COUNT 252 K/mm3 (130-400); RED BLOOD COUNT 4.01 M/mm3 (4.10-5.30); REDCELL DISTRIBUTION WIDTH-CV 13.7 % (11.5-14.5)
[2018-05-01 00:58] LABS: PROTHROMBIN TIME 11.4 SECONDS (9.7-12.8)
[2018-05-01 01:00] LABS: ALBUMIN 3.8 gm/dL (3.5-5.0); BILIRUBIN,TOTAL 0.3 mg/dL (0.0-1.0); CALCIUM 9.1 mg/dL (8.4-10.2); CREATININE, serum 0.78 mg/dL (0.52-1.25); POTASSIUM 4.4 mmol/L (3.4-5.0); TOTAL PROTEIN 7.1 gm/dL (6.4-8.2)
[2018-05-01 01:11] LABS: TROPONIN-I 0.02 ng/mL (0.000-0.035)
[2018-05-01 01:20] LABS: COLLECTION METHOD CLEAN CATCH
[2018-05-01 01:29] LABS: TSH w REFLEX 4.64 uIU/mL (0.465-4.680)
[2018-05-01 03:26] LABS: MUCOUS Present /lpf; PH 5 (5-8); URINE APPEARANCE Hazy; URINE BACTERIA None Seen /hpf; URINE BILIRUBIN Negative (NEGATIVE); URINE BLOOD Negative (NEGATIVE); URINE COLOR Yellow; URINE GLUCOSE Negative (NEGATIVE); URINE KETONE Negative (NEGATIVE); URINE LEUKOCYTE ESTERASE 2+ (NEGATIVE); URINE NITRATE Negative (NEGATIVE); URINE PROTEIN(semi-quant) Negative (NEGATIVE); URINE RBC 0-2 /hpf; URINE UROBILINOGEN Negative (NEGATIVE)
[2018-05-01 03:30] VITALS: BP 115/60; PULSE 65
[2018-05-01] MEDS ORDERED: MACROBID 1100 MG/CAP PO (03:39)
== END 2018-05-01 03:30 | disposition home or self-care (01) ==
LOC: COL.ER 22:13
PROVIDERS: Emergency Medicine
DX: R53.81 Other malaise (principal); I25.10 Atherosclerotic heart disease of native coronary artery without angina pectoris; Z79.82 Long term (current) use of aspirin; Z79.02 Long term (current) use of antithrombotics/antiplatelets; Z95.5 Presence of coronary angioplasty implant and graft
CPT/HCPCS: J7030

== ENCOUNTER → 2018-05-06 | Emergency (ER) | payer MEDICARE | LOC: COL.ER 14:26 | DX: Z72.9 Problem related to lifestyle, unspecified (principal); Z79.02 Long term (current) use of antithrombotics/antiplatelets; Z79.82 Long term (current) use of aspirin ==

== ENCOUNTER 2018-06-13 15:03 | Outpatient (RCR) | payer MEDICARE | END 2018-07-31 16:12 | disposition home or self-care (01) | LOC: COL.CR 15:03 | DX: Z48.812 Encounter for surgical aftercare following surgery on the circulatory system (principal); I25.10 Atherosclerotic heart disease of native coronary artery without angina pectoris ==

== ENCOUNTER 2018-10-30 14:48 | Emergency (ER) | payer MEDICARE ==
[~2018-10-30] VITALS: Ht 157.5 cm; Wt 60.5 kg
[2018-10-30 14:53] VITALS: TEMP 98.6
[2018-10-30] MEDS ORDERED: CLARITIN 1010 MG/TAB PO (15:29)
[2018-10-30 15:30] LABS: BASO # 0.1 (0.0-0.2); BASO % 0.5 % (0.0-2.0); EOS # 0.3 (0.0-0.7); EOS % 2.9 % (0-4.0); GRAN # 5.1 (1.4-6.5); GRAN % 53.2 % (42.2-75.2); HEMATOCRIT 37.6 % (37.0-47.0); HEMOGLOBIN 12.5 g/dl (12.5-16.0); LYMPH % 31.5 % (20.0-51.0); MEAN CELL VOLUME 89 fl (80.0-100.0); MEAN CORPUSCULAR HEMOGLOBIN 29 pg (27.0-31.0); MEAN CORPUSCULAR HGB CONC 33 g/dl (33.0-37.0); MEAN PLATELET VOLUME 9.8 fl (7.4-10.4); MONO # 1.1 (0.1-0.6); MONO % 11.4 % (1.7-9.3); PLATELET COUNT 234 K/mm3 (130-400); RED BLOOD COUNT 4.25 M/mm3 (4.10-5.30); REDCELL DISTRIBUTION WIDTH-CV 13.8 % (11.5-14.5)
[2018-10-30 15:47] LABS: ALANINE AMINOTRANSFERASE 13 U/L (9-52); ALBUMIN 4.2 gm/dL (3.5-5.0); ALKALINE PHOSPHATASE 70 U/L (50-136); ANION GAP 10 mmol/L (7-16); AST,SGOT 32 U/L (15-37); BILIRUBIN,TOTAL 0.5 mg/dL (0.0-1.0); BLOOD UREA NITROGEN 22 mg/dL (7-17); CARBON DIOXIDE 25 mmol/L (22-30); CHLORIDE 106 mmol/L (98-107); CREATININE, serum 0.77 (0.52-1.25); GLUCOSE 101 mg/dL (74-106); POTASSIUM 3.7 mmol/L (3.4-5.0); SODIUM 141 mmol/L (137-145); TOTAL PROTEIN 7.6 gm/dL (6.4-8.2)
[2018-10-30 16:02] LABS: TROPONIN-I < 0.012 ng/mL (0.000-0.035)
[2018-10-30 18:35] VITALS: BP 100/61; PULSE 59
== END 2018-10-30 20:00 | disposition home or self-care (01) ==
LOC: COL.ER 14:48
PROVIDERS: Emergency Medicine
DX: R06.02 Shortness of breath (principal); I25.10 Atherosclerotic heart disease of native coronary artery without angina pectoris; Z86.718 Personal history of other venous thrombosis and embolism; Z95.5 Presence of coronary angioplasty implant and graft; Z79.82 Long term (current) use of aspirin; Z79.02 Long term (current) use of antithrombotics/antiplatelets

== ENCOUNTER 2018-11-05 08:18 | Emergency (ER) | payer MEDICARE ==
[~2018-11-05] VITALS: Ht 157.5 cm; Wt 59.1 kg
[~2018-11-05 08:18] MED LIST changes: +CLARITIN 1010 MG/TAB PO
[2018-11-05 08:24] VITALS: BP 107/63; TEMP 98
[2018-11-05 08:45] LABS: COLLECTION METHOD CLEAN CATCH
[2018-11-05 08:52] LABS: PH 6 (5-8); SQUAMOUS EPITHELIAL None Seen /hpf; URINE APPEARANCE Cloudy; URINE BACTERIA None Seen /hpf; URINE BILIRUBIN Negative (NEGATIVE); URINE BLOOD 3+ (NEGATIVE); URINE COLOR Red; URINE GLUCOSE Negative (NEGATIVE); URINE KETONE Negative (NEGATIVE); URINE LEUKOCYTE ESTERASE 2+ (NEGATIVE); URINE NITRATE Negative (NEGATIVE); URINE PROTEIN(semi-quant) 2+ (NEGATIVE); URINE RBC >50 /hpf; URINE UROBILINOGEN Negative (NEGATIVE)
[2018-11-05] MEDS ORDERED: PYRIDIUM200 M1 PO (09:10)
[2018-11-05] MEDS ORDERED: CEFTIN 250250 MG/TAB PO (09:10)
[2018-11-05 09:21] VITALS: PULSE 60
== END 2018-11-05 09:22 | disposition home or self-care (01) ==
LOC: COL.ER 08:18
PROVIDERS: Physician Assistant
DX: N39.0 Urinary tract infection, site not specified (principal); I25.10 Atherosclerotic heart disease of native coronary artery without angina pectoris; I25.2 Old myocardial infarction; Z86.718 Personal history of other venous thrombosis and embolism; Z79.82 Long term (current) use of aspirin; Z98.51 Tubal ligation status; Z79.02 Long term (current) use of antithrombotics/antiplatelets

== ENCOUNTER 2018-11-12 21:50 | Emergency (ER) | payer MEDICARE ==
[~2018-11-12] VITALS: Ht 157.5 cm; Wt 60.9 kg
[~2018-11-12 21:50] MED LIST changes: +CEFTIN 250250 MG/TAB PO; +PYRIDIUM200 M1 PO
[2018-11-12 21:55] VITALS: BP 112/77; PULSE 82; TEMP 98.8
[2018-11-12] MEDS ORDERED: BACTRIM DS 8001 TAB PO (22:11)
== END 2018-11-12 22:54 | disposition home or self-care (01) ==
LOC: COL.ER 21:50
DX: L60.0 Ingrowing nail (principal); L08.9 Local infection of the skin and subcutaneous tissue, unspecified; I10 Essential (primary) hypertension; Z86.718 Personal history of other venous thrombosis and embolism; Z79.82 Long term (current) use of aspirin; Z79.02 Long term (current) use of antithrombotics/antiplatelets

== ENCOUNTER 2018-11-15 06:29 | Emergency (ER) | payer MEDICARE ==
[~2018-11-15] VITALS: Ht 157.5 cm; Wt 60.9 kg
[2018-11-15 07:25] VITALS: BP 102/68; PULSE 65; TEMP 97.2
== END 2018-11-15 07:25 | disposition home or self-care (01) ==
LOC: COL.ER 06:29
DX: L03.032 Cellulitis of left toe (principal); I25.10 Atherosclerotic heart disease of native coronary artery without angina pectoris

== ENCOUNTER 2018-11-15 14:02 | Emergency (ER) | payer MEDICARE ==
[~2018-11-15] VITALS: Ht 157.5 cm; Wt 60.9 kg
[2018-11-15 15:25] LABS: BASO % 0.3 % (0.0-2.0); EOS # 0.2 (0.0-0.7); GRAN # 5.9 (1.4-6.5); GRAN % 64.1 % (42.2-75.2); HEMATOCRIT 37.4 % (37.0-47.0); LYMPH # 2.1 (1.2-3.4); LYMPH % 22.4 % (20.0-51.0); MEAN CELL VOLUME 91 fl (80.0-100.0); MEAN CORPUSCULAR HEMOGLOBIN 29 pg (27.0-31.0); MEAN CORPUSCULAR HGB CONC 32 g/dl (33.0-37.0); MEAN PLATELET VOLUME 9.4 fl (7.4-10.4); MONO % 10.8 % (1.7-9.3); PLATELET COUNT 222 K/mm3 (130-400); RED BLOOD COUNT 4.13 M/mm3 (4.10-5.30); REDCELL DISTRIBUTION WIDTH-CV 13.2 % (11.5-14.5)
[2018-11-15 15:35] LABS: ALANINE AMINOTRANSFERASE 15 U/L (9-52); ALBUMIN 4.3 gm/dL (3.5-5.0); ALKALINE PHOSPHATASE 58 U/L (50-136); ANION GAP 10 mmol/L (7-16); AST,SGOT 37 U/L (15-37); BILIRUBIN,TOTAL 0.4 mg/dL (0.0-1.0); BLOOD UREA NITROGEN 25 mg/dL (7-17); CALCIUM 9.4 mg/dL (8.4-10.2); CARBON DIOXIDE 25 mmol/L (22-30); CHLORIDE 105 mmol/L (98-107); GLUCOSE 78 mg/dL (74-106); POTASSIUM 4.4 mmol/L (3.4-5.0); SODIUM 140 mmol/L (137-145); TOTAL PROTEIN 7.7 gm/dL (6.4-8.2)
[2018-11-15 15:49] LABS: TROPONIN-I < 0.012 ng/mL (0.000-0.035)
[2018-11-15 16:58] VITALS: BP 102/68; PULSE 62; TEMP 98.6
== END 2018-11-15 16:58 | disposition home or self-care (01) ==
LOC: COL.ER 14:02
PROVIDERS: Physician Assistant
DX: M62.838 Other muscle spasm (principal); F31.9 Bipolar disorder, unspecified; I25.10 Atherosclerotic heart disease of native coronary artery without angina pectoris; F41.9 Anxiety disorder, unspecified; Z79.02 Long term (current) use of antithrombotics/antiplatelets; Z95.9 Presence of cardiac and vascular implant and graft, unspecified; Z79.82 Long term (current) use of aspirin

== ENCOUNTER 2018-11-21 06:56 | Emergency (ER) | payer MEDICARE ==
[~2018-11-21] VITALS: Ht 157.5 cm; Wt 60.0 kg
[2018-11-21 07:00] VITALS: TEMP 97.4
[2018-11-21 08:32] LABS: COLLECTION METHOD CLEAN CATCH
[2018-11-21 08:42] LABS: MUCOUS Present /lpf; PH 5 (5-8); SQUAMOUS EPITHELIAL 0-2 /hpf; URINE APPEARANCE Clear; URINE BACTERIA Rare /hpf; URINE BILIRUBIN Negative (NEGATIVE); URINE BLOOD 1+ (NEGATIVE); URINE COLOR Yellow; URINE GLUCOSE Negative (NEGATIVE); URINE KETONE Negative (NEGATIVE); URINE LEUKOCYTE ESTERASE 3+ (NEGATIVE); URINE NITRATE Negative (NEGATIVE); URINE PROTEIN(semi-quant) Negative (NEGATIVE); URINE UROBILINOGEN Negative (NEGATIVE)
[2018-11-21] MEDS ORDERED: MACROBID 1100 MG/CAP PO (09:06)
[2018-11-21 09:20] VITALS: BP 103/62; PULSE 61
[2018-11-22] MEDS ORDERED: ZOFRAN 4MG T4 MG/TAB PO (18:17)
== END 2018-11-21 09:30 | disposition home or self-care (01) ==
LOC: COL.ER 06:56
PROVIDERS: Family Medicine
DX: N39.0 Urinary tract infection, site not specified (principal); Z86.718 Personal history of other venous thrombosis and embolism; Z79.82 Long term (current) use of aspirin

== ENCOUNTER → 2018-11-22 | Emergency (ER) | payer MEDICARE ==
[~2018-11-22] VITALS: Ht 157.5 cm; Wt 59.9 kg
[~2018-11-22] MED LIST changes: +ZOFRAN 4MG T4 MG/TAB PO
[2018-11-22 16:48] LABS: BASO % 0.2 % (0.0-2.0); EOS % 0.3 % (0-4.0); GRAN # 10.8 (1.4-6.5); GRAN % 81.8 % (42.2-75.2); HEMATOCRIT 38.8 % (37.0-47.0); HEMOGLOBIN 12.6 g/dl (12.5-16.0); LYMPH # 1.2 (1.2-3.4); LYMPH % 9.2 % (20.0-51.0); MEAN CELL VOLUME 92 fl (80.0-100.0); MEAN CORPUSCULAR HEMOGLOBIN 30 pg (27.0-31.0); MEAN CORPUSCULAR HGB CONC 33 g/dl (33.0-37.0); MEAN PLATELET VOLUME 9.6 fl (7.4-10.4); MONO # 1.1 (0.1-0.6); MONO % 8.1 % (1.7-9.3); PLATELET COUNT 221 K/mm3 (130-400); RED BLOOD COUNT 4.24 M/mm3 (4.10-5.30); REDCELL DISTRIBUTION WIDTH-CV 13.2 % (11.5-14.5)
[2018-11-22 16:56] LABS: ALANINE AMINOTRANSFERASE 20 U/L (9-52); ALBUMIN 4.3 gm/dL (3.5-5.0); ALKALINE PHOSPHATASE 74 U/L (50-136); ANION GAP 9 mmol/L (7-16); AST,SGOT 38 U/L (15-37); BILIRUBIN,TOTAL 0.4 mg/dL (0.0-1.0); BLOOD UREA NITROGEN 23 mg/dL (7-17); CALCIUM 8.9 mg/dL (8.4-10.2); CARBON DIOXIDE 24 mmol/L (22-30); CHLORIDE 103 mmol/L (98-107); CREATININE, serum 0.89 (0.52-1.25); GLUCOSE 85 mg/dL (74-106); POTASSIUM 4.1 mmol/L (3.4-5.0); SODIUM 136 mmol/L (137-145); TOTAL PROTEIN 7.8 gm/dL (6.4-8.2)
[2018-11-22 17:08] LABS: TROPONIN-I < 0.012 ng/mL (0.000-0.035)
[2018-11-22 18:02] VITALS: TEMP 98.3
[2018-11-22 18:31] VITALS: BP 116/72; PULSE 78
== END ==
LOC: COL.ER 15:42
PROVIDERS: Emergency Medicine
DX: T37.8X5A Adverse effect of other specified systemic anti-infectives and antiparasitics, initial encounter (principal); I25.10 Atherosclerotic heart disease of native coronary artery without angina pectoris; Z79.82 Long term (current) use of aspirin; Z79.02 Long term (current) use of antithrombotics/antiplatelets
CPT/HCPCS: J2405

== ENCOUNTER 2019-01-12 16:13 | Emergency (ER) | payer MEDICARE ==
[~2019-01-12] VITALS: Ht 157.5 cm; Wt 58.2 kg
[2019-01-12 16:13] VITALS: BP 131/76; TEMP 97.5
[2019-01-12 17:36] LABS: BASO % 0.3 % (0.0-2.0); EOS # 0.1 (0.0-0.7); EOS % 0.8 % (0-4.0); GRAN # 6.9 (1.4-6.5); GRAN % 71.8 % (42.2-75.2); HEMOGLOBIN 11.8 g/dl (12.5-16.0); LYMPH # 1.7 (1.2-3.4); LYMPH % 17.5 % (20.0-51.0); MEAN CELL VOLUME 90 fl (80.0-100.0); MEAN CORPUSCULAR HEMOGLOBIN 29 pg (27.0-31.0); MEAN CORPUSCULAR HGB CONC 33 g/dl (33.0-37.0); MEAN PLATELET VOLUME 9.7 fl (7.4-10.4); MONO # 0.9 (0.1-0.6); MONO % 9.1 % (1.7-9.3); PLATELET COUNT 156 K/mm3 (130-400); RED BLOOD COUNT 4.01 M/mm3 (4.10-5.30); REDCELL DISTRIBUTION WIDTH-CV 13.2 % (11.5-14.5)
[2019-01-12 17:40] LABS: HEMATOCRIT 36.1 % (37.0-47.0)
[2019-01-12 17:44] LABS: INR 1.1 (0.8-3.0); PROTHROMBIN TIME 12.4 SECONDS (9.7-12.8)
[2019-01-12 17:46] LABS: PARTIAL THROMBOPLASTIN TIME 28.5 SECONDS (26.0-37.0)
[2019-01-12 17:49] LABS: ALANINE AMINOTRANSFERASE 26 U/L (9-52); ALBUMIN 3.5 gm/dL (3.5-5.0); ALKALINE PHOSPHATASE 52 U/L (50-136); ANION GAP 7 mmol/L (7-16); AST,SGOT 23 U/L (15-37); BILIRUBIN,TOTAL 0.5 mg/dL (0.0-1.0); BLOOD UREA NITROGEN 15 mg/dL (7-17); CALCIUM 8.3 mg/dL (8.4-10.2); CARBON DIOXIDE 24 mmol/L (22-30); CHLORIDE 108 mmol/L (98-107); CREATININE, serum 0.71 (0.52-1.25); GLUCOSE 105 mg/dL (74-106); POTASSIUM 3.6 mmol/L (3.4-5.0); SODIUM 140 mmol/L (137-145); TOTAL PROTEIN 6.4 gm/dL (6.4-8.2)
[2019-01-12 18:02] LABS: TROPONIN-I < 0.012 ng/mL (0.000-0.035)
[2019-01-12] MEDS ORDERED: ANTIVERT 12.512.5 MG PO (21:32)
[2019-01-12] MEDS ORDERED: ZOFRAN 4MG T4 MG/TAB PO (21:32)
[2019-01-12 22:11] VITALS: PULSE 65
== END 2019-01-12 22:10 | disposition home or self-care (01) ==
LOC: COL.ER 16:13
PROVIDERS: Emergency Medicine
DX: R42 Dizziness and giddiness (principal); R11.2 Nausea with vomiting, unspecified; I50.9 Heart failure, unspecified; I25.10 Atherosclerotic heart disease of native coronary artery without angina pectoris; Z79.02 Long term (current) use of antithrombotics/antiplatelets; Z79.82 Long term (current) use of aspirin; Z95.5 Presence of coronary angioplasty implant and graft; Z98.51 Tubal ligation status
CPT/HCPCS: J2405; J7030

== ENCOUNTER 2019-04-21 09:49 | Emergency (ER) | payer MEDICARE ==
[~2019-04-21] VITALS: Ht 157.5 cm; Wt 60.9 kg
[~2019-04-21 09:49] MED LIST changes: +ANTIVERT 12.512.5 MG PO
[2019-04-21 10:04] VITALS: TEMP 98
[2019-04-21 10:48] LABS: HEMATOCRIT 38.9 % (37.0-47.0); HEMOGLOBIN 12.4 g/dl (12.5-16.0); MEAN CELL VOLUME 91 fl (80.0-100.0); MEAN CORPUSCULAR HEMOGLOBIN 29 pg (27.0-31.0); MEAN CORPUSCULAR HGB CONC 32 g/dl (33.0-37.0); MEAN PLATELET VOLUME 9.9 fl (7.4-10.4); PLATELET COUNT 229 K/mm3 (130-400); RED BLOOD COUNT 4.27 M/mm3 (4.10-5.30); REDCELL DISTRIBUTION WIDTH-CV 13.5 % (11.5-14.5)
[2019-04-21 10:53] LABS: PROTHROMBIN TIME 11.5 SECONDS (9.7-12.8)
[2019-04-21 11:02] LABS: ALANINE AMINOTRANSFERASE 22 U/L (9-52); ALKALINE PHOSPHATASE 68 U/L (50-136); ANION GAP 9 mmol/L (7-16); AST,SGOT 28 U/L (15-37); BAND 12 % (0-10); BILIRUBIN,TOTAL 0.4 mg/dL (0.0-1.0); BLOOD UREA NITROGEN 22 mg/dL (7-17); CALCIUM 8.9 mg/dL (8.4-10.2); CARBON DIOXIDE 25 mmol/L (22-30); CHLORIDE 106 mmol/L (98-107); EOSINOPHIL 1 % (0-4); GLUCOSE 93 mg/dL (74-106); NEUTROPHILS 53 % (42.0-75.2); OVALOCYTES 1+; PLATELET ESTIMATE NORMAL (NORMAL); POTASSIUM 4.4 mmol/L (3.4-5.0); SODIUM 139 mmol/L (137-145); TOTAL PROTEIN 7.5 gm/dL (6.4-8.2)
[2019-04-21 11:03] LABS: LYMPHOCYTE 19 % (20.0-51.0)
[2019-04-21 11:14] LABS: TROPONIN-I < 0.012 ng/mL (0.000-0.035)
[2019-04-21 11:55] VITALS: BP 119/74; PULSE 72
== END 2019-04-21 11:55 | disposition home or self-care (01) ==
LOC: COL.ER 09:49
PROVIDERS: Family Medicine
DX: R06.02 Shortness of breath (principal); I25.10 Atherosclerotic heart disease of native coronary artery without angina pectoris; Z79.02 Long term (current) use of antithrombotics/antiplatelets; Z79.82 Long term (current) use of aspirin

== ENCOUNTER 2019-04-30 00:03 | Emergency (ER) | payer MEDICARE ==
[~2019-04-30] VITALS: Ht 157.5 cm; Wt 60.9 kg
[2019-04-30 00:53] LABS: HEMOGLOBIN 11.9 g/dl (12.5-16.0); MEAN CELL VOLUME 89 fl (80.0-100.0); MEAN CORPUSCULAR HEMOGLOBIN 29 pg (27.0-31.0); MEAN CORPUSCULAR HGB CONC 32 g/dl (33.0-37.0); MEAN PLATELET VOLUME 9.5 fl (7.4-10.4); PLATELET COUNT 252 K/mm3 (130-400); RED BLOOD COUNT 4.13 M/mm3 (4.10-5.30); REDCELL DISTRIBUTION WIDTH-CV 13.2 % (11.5-14.5)
[2019-04-30 00:58] LABS: HEMATOCRIT 36.9 % (37.0-47.0)
[2019-04-30 01:01] LABS: ALANINE AMINOTRANSFERASE 30 U/L (9-52); ALBUMIN 3.8 gm/dL (3.5-5.0); ALKALINE PHOSPHATASE 75 U/L (50-136); ANION GAP 8 mmol/L (7-16); AST,SGOT 31 U/L (15-37); BILIRUBIN,TOTAL 0.4 mg/dL (0.0-1.0); BLOOD UREA NITROGEN 25 mg/dL (7-17); CALCIUM 8.9 mg/dL (8.4-10.2); CARBON DIOXIDE 22 mmol/L (22-30); CHLORIDE 109 mmol/L (98-107); CREATININE, serum 0.69 (0.52-1.25); GLUCOSE 105 mg/dL (74-106); POTASSIUM 3.8 mmol/L (3.4-5.0); SODIUM 140 mmol/L (137-145); TOTAL PROTEIN 7.5 gm/dL (6.4-8.2)
[2019-04-30 01:10] LABS: BAND 2 % (0-10); EOSINOPHIL 1 % (0-4); LYMPHOCYTE 35 % (20.0-51.0); NEUTROPHILS 56 % (42.0-75.2); PLATELET ESTIMATE NORMAL (NORMAL)
[2019-04-30 01:29] LABS: TROPONIN-I < 0.012 ng/mL (0.000-0.035)
[2019-04-30 03:41] VITALS: BP 114/68; PULSE 72; TEMP 98.9
== END 2019-04-30 03:35 | disposition home or self-care (01) ==
LOC: COL.ER 00:03
PROVIDERS: Emergency Medicine
DX: J20.9 Acute bronchitis, unspecified (principal); I25.10 Atherosclerotic heart disease of native coronary artery without angina pectoris; Z79.82 Long term (current) use of aspirin; Z79.02 Long term (current) use of antithrombotics/antiplatelets
CPT/HCPCS: J1100

== ENCOUNTER 2019-05-02 03:01 | Emergency (ER) | payer MEDICARE ==
[~2019-05-02] VITALS: Ht 160 cm; Wt 60.9 kg
[2019-05-02 03:43] LABS: HEMATOCRIT 37.2 % (37.0-47.0); MEAN CELL VOLUME 90 fl (80.0-100.0); MEAN CORPUSCULAR HEMOGLOBIN 29 pg (27.0-31.0); MEAN CORPUSCULAR HGB CONC 32 g/dl (33.0-37.0); MEAN PLATELET VOLUME 9.5 fl (7.4-10.4); PLATELET COUNT 291 K/mm3 (130-400); RED BLOOD COUNT 4.15 M/mm3 (4.10-5.30); REDCELL DISTRIBUTION WIDTH-CV 13.5 % (11.5-14.5)
[2019-05-02 03:52] LABS: ALANINE AMINOTRANSFERASE 31 U/L (4-34); ALBUMIN 3.9 gm/dL (3.5-5.0); ALKALINE PHOSPHATASE 74 U/L (50-136); ANION GAP 8 mmol/L (7-16); AST,SGOT 51 U/L (15-37); BILIRUBIN,TOTAL 0.5 mg/dL (0.0-1.0); BLOOD UREA NITROGEN 28 mg/dL (7-17); CALCIUM 8.7 mg/dL (8.4-10.2); CARBON DIOXIDE 24 mmol/L (22-30); CHLORIDE 109 mmol/L (98-107); CREATININE, serum 0.86 (0.52-1.25); GLUCOSE 98 mg/dL (74-106); POTASSIUM 3.6 mmol/L (3.4-5.0); SODIUM 141 mmol/L (137-145); TOTAL PROTEIN 7.3 gm/dL (6.4-8.2)
[2019-05-02 04:21] LABS: TROPONIN-I < 0.012 ng/mL (0.000-0.035)
[2019-05-02 04:34] LABS: BAND 2 % (0-10); EOSINOPHIL 2 % (0-4); LYMPHOCYTE 41 % (20.0-51.0); NEUTROPHILS 45 % (42.0-75.2)
[2019-05-02 04:36] LABS: PLATELET ESTIMATE NORMAL (NORMAL)
[2019-05-02 05:05] VITALS: BP 102/57; PULSE 58; TEMP 98.1
== END 2019-05-02 05:10 | disposition home or self-care (01) ==
LOC: COL.ER 03:01
PROVIDERS: Emergency Medicine
DX: R06.00 Dyspnea, unspecified (principal); I25.10 Atherosclerotic heart disease of native coronary artery without angina pectoris; F41.9 Anxiety disorder, unspecified; Z95.5 Presence of coronary angioplasty implant and graft; Z79.82 Long term (current) use of aspirin; Z79.02 Long term (current) use of antithrombotics/antiplatelets

== ENCOUNTER 2019-05-04 23:25 | Emergency (ER) | payer MEDICARE ==
[~2019-05-04] VITALS: Ht 160 cm; Wt 60.9 kg
[2019-05-05 00:12] VITALS: BP 103/65; PULSE 64; TEMP 98
[2019-05-06] MEDS ORDERED: LIDO35.4 TOP (02:58)
== END 2019-05-05 00:17 | disposition home or self-care (01) ==
LOC: COL.ER 23:25
DX: L60.0 Ingrowing nail (principal); I10 Essential (primary) hypertension; Z79.82 Long term (current) use of aspirin; Z79.02 Long term (current) use of antithrombotics/antiplatelets

== ENCOUNTER 2019-05-06 02:02 | Emergency (ER) | payer MEDICARE ==
[~2019-05-06] VITALS: Ht 157.5 cm; Wt 60.9 kg
[2019-05-06 02:05] VITALS: TEMP 98.7
[2019-05-06] MEDS ORDERED: LIDO35.4 TOP (02:58)
[2019-05-06 03:17] VITALS: BP 125/79; PULSE 84
== END 2019-05-06 03:30 | disposition home or self-care (01) ==
LOC: COL.ER 02:02
DX: M79.674 Pain in right toe(s) (principal); I25.10 Atherosclerotic heart disease of native coronary artery without angina pectoris; I10 Essential (primary) hypertension; Z79.82 Long term (current) use of aspirin; Z79.02 Long term (current) use of antithrombotics/antiplatelets

== ENCOUNTER 2019-05-08 00:49 | Emergency (ER) | payer MEDICARE ==
[~2019-05-08] VITALS: Ht 157.5 cm; Wt 60.9 kg
[~2019-05-08 00:49] MED LIST changes: +LIDO35.4 TOP
[2019-05-08 01:06] VITALS: BP 108/61; TEMP 98
[2019-05-08 01:57] LABS: BASO # 0.1 (0.0-0.2); BASO % 0.6 % (0.0-2.0); EOS # 0.3 (0.0-0.7); EOS % 2.7 % (0-4.0); GRAN # 5.4 (1.4-6.5); GRAN % 50.1 % (42.2-75.2); HEMOGLOBIN 11.8 g/dl (12.5-16.0); LYMPH # 3.4 (1.2-3.4); LYMPH % 31.5 % (20.0-51.0); MEAN CELL VOLUME 90 fl (80.0-100.0); MEAN CORPUSCULAR HEMOGLOBIN 29 pg (27.0-31.0); MEAN CORPUSCULAR HGB CONC 32 g/dl (33.0-37.0); MEAN PLATELET VOLUME 9.8 fl (7.4-10.4); MONO # 1.5 (0.1-0.6); MONO % 14.3 % (1.7-9.3); PLATELET COUNT 260 K/mm3 (130-400); RED BLOOD COUNT 4.08 M/mm3 (4.10-5.30); REDCELL DISTRIBUTION WIDTH-CV 13.6 % (11.5-14.5)
[2019-05-08 02:03] LABS: HEMATOCRIT 36.9 % (37.0-47.0)
[2019-05-08 02:10] LABS: ALBUMIN 3.7 gm/dL (3.5-5.0); BILIRUBIN,TOTAL 0.4 mg/dL (0.0-1.0); CALCIUM 9.2 mg/dL (8.4-10.2); CREATININE, serum 0.72 (0.52-1.25); POTASSIUM 4.5 mmol/L (3.4-5.0); TOTAL PROTEIN 6.9 gm/dL (6.4-8.2)
[2019-05-08 02:36] VITALS: PULSE 64
== END 2019-05-08 02:36 | disposition home or self-care (01) ==
LOC: COL.ER 00:49
PROVIDERS: Nurse Practitioner
DX: G47.62 Sleep related leg cramps (principal); Z79.82 Long term (current) use of aspirin; Z79.02 Long term (current) use of antithrombotics/antiplatelets; Z95.5 Presence of coronary angioplasty implant and graft

== ENCOUNTER 2019-05-09 22:35 | Emergency (ER) | payer MEDICARE ==
[~2019-05-09] VITALS: Ht 157.5 cm; Wt 61.8 kg
[2019-05-09 22:43] VITALS: BP 129/74; PULSE 73; TEMP 97.5
== END 2019-05-09 23:00 | disposition home or self-care (01) ==
LOC: COL.ER 22:35
DX: J32.9 Chronic sinusitis, unspecified (principal); Z95.5 Presence of coronary angioplasty implant and graft; Z79.82 Long term (current) use of aspirin; Z79.02 Long term (current) use of antithrombotics/antiplatelets

== ENCOUNTER → 2019-05-11 | Outpatient (CLI) | payer MEDICARE | LOC: COL.RAD 13:38 | DX: J01.00 Acute maxillary sinusitis, unspecified (principal) ==

== ENCOUNTER 2019-07-01 10:47 | Emergency (ER) | payer MEDICARE ==
[~2019-07-01] VITALS: Ht 157.5 cm; Wt 58.2 kg
[2019-07-01 11:01] VITALS: TEMP 98.5
[2019-07-01 11:31] LABS: HEMATOCRIT 44.7 % (37.0-47.0); HEMOGLOBIN 14.4 g/dl (12.5-16.0); MEAN CELL VOLUME 88 fl (80.0-100.0); MEAN CORPUSCULAR HEMOGLOBIN 28 pg (27.0-31.0); MEAN CORPUSCULAR HGB CONC 32 g/dl (33.0-37.0); MEAN PLATELET VOLUME 10.1 fl (7.4-10.4); PLATELET COUNT 269 K/mm3 (130-400); RED BLOOD COUNT 5.09 M/mm3 (4.10-5.30); REDCELL DISTRIBUTION WIDTH-CV 13.2 % (11.5-14.5)
[2019-07-01] MEDS ORDERED: CLARITIN-D 10 M1 T24 (11:31)
[2019-07-01] MEDS ORDERED: PRINIVIL5 MG PO (11:33)
[2019-07-01 11:38] LABS: ALANINE AMINOTRANSFERASE 24 U/L (4-34); ALBUMIN 4.5 gm/dL (3.5-5.0); ALKALINE PHOSPHATASE 87 U/L (50-136); ANION GAP 12 mmol/L (7-16); AST,SGOT 32 U/L (15-37); BILIRUBIN,TOTAL 0.7 mg/dL (0.0-1.0); BLOOD UREA NITROGEN 32 mg/dL (7-17); CALCIUM 9.8 mg/dL (8.4-10.2); CARBON DIOXIDE 28 mmol/L (22-30); CHLORIDE 101 mmol/L (98-107); CREATININE, serum 0.94 (0.52-1.25); GLUCOSE 105 mg/dL (74-106); POTASSIUM 3.9 mmol/L (3.4-5.0); SODIUM 140 mmol/L (137-145); TOTAL PROTEIN 8.4 gm/dL (6.4-8.2)
[2019-07-01 11:51] LABS: TROPONIN-I < 0.012 ng/mL (0.000-0.035)
[2019-07-01 14:03] LABS: BAND 3 % (0-10); LYMPHOCYTE 11 % (20.0-51.0); NEUTROPHILS 78 % (42.0-75.2); PLATELET ESTIMATE NORMAL (NORMAL)
[2019-07-01 14:08] LABS: COLLECTION METHOD CLEAN CATCH
[2019-07-01 14:19] LABS: MUCOUS Present /lpf; PH 5 (5-8); URINE APPEARANCE Clear; URINE BACTERIA Rare /hpf; URINE BILIRUBIN Negative (NEGATIVE); URINE BLOOD Negative (NEGATIVE); URINE COLOR Yellow; URINE GLUCOSE Negative (NEGATIVE); URINE KETONE Negative (NEGATIVE); URINE LEUKOCYTE ESTERASE Negative (NEGATIVE); URINE NITRATE Negative (NEGATIVE); URINE PROTEIN(semi-quant) Negative (NEGATIVE); URINE RBC 0-2 /hpf; URINE UROBILINOGEN Negative (NEGATIVE)
[2019-07-01] MEDS ORDERED: FLAGYL500 MG PO ×3 (14:32→14:54)
[2019-07-01 14:40] VITALS: BP 111/65; PULSE 62
== END 2019-07-01 14:45 | disposition home or self-care (01) ==
LOC: COL.ER 10:47
PROVIDERS: Family Medicine
DX: K52.9 Noninfective gastroenteritis and colitis, unspecified (principal)
CPT/HCPCS: J1100; J1200; J2405; J7030; Q9967

== ENCOUNTER 2019-09-14 05:40 | Emergency (ER) | payer MEDICARE ==
[~2019-09-14] VITALS: Ht 157.5 cm; Wt 57.3 kg
[~2019-09-14 05:40] MED LIST changes: +CLARITIN-D 10 M1 T24; +FLAGYL500 MG PO; +PRINIVIL5 MG PO
[2019-09-14 05:53] VITALS: BP 112/70
[2019-09-14 06:53] LABS: BASO # 0.1 (0.0-0.2); BASO % 0.5 % (0.0-2.0); EOS # 0.2 (0.0-0.7); EOS % 1.6 % (0-4.0); GRAN % 62.3 % (42.2-75.2); HEMOGLOBIN 13.6 g/dl (12.5-16.0); LYMPH # 2.8 (1.2-3.4); LYMPH % 25.4 % (20.0-51.0); MEAN CELL VOLUME 89 fl (80.0-100.0); MEAN CORPUSCULAR HEMOGLOBIN 29 pg (27.0-31.0); MEAN CORPUSCULAR HGB CONC 32 g/dl (33.0-37.0); MEAN PLATELET VOLUME 9.2 fl (7.4-10.4); MONO # 1.1 (0.1-0.6); MONO % 9.7 % (1.7-9.3); PLATELET COUNT 259 K/mm3 (130-400); RED BLOOD COUNT 4.71 M/mm3 (4.10-5.30); REDCELL DISTRIBUTION WIDTH-CV 13.4 % (11.5-14.5)
[2019-09-14 07:00] LABS: COLLECTION METHOD CLEAN CATCH
[2019-09-14 07:01] LABS: ALBUMIN 4.3 gm/dL (3.5-5.0); BILIRUBIN,TOTAL 0.4 mg/dL (0.0-1.0); CALCIUM 9.1 mg/dL (8.4-10.2); CREATININE, serum 0.78 (0.52-1.25); POTASSIUM 4.3 mmol/L (3.4-5.0); TOTAL PROTEIN 8.3 gm/dL (6.4-8.2)
[2019-09-14 07:08] LABS: MUCOUS Present /lpf; PH 5 (5-8); SQUAMOUS EPITHELIAL None Seen /hpf; URINE APPEARANCE Cloudy; URINE BACTERIA None Seen /hpf; URINE BILIRUBIN Negative (NEGATIVE); URINE BLOOD 3+ (NEGATIVE); URINE COLOR Yellow; URINE GLUCOSE Negative (NEGATIVE); URINE KETONE Negative (NEGATIVE); URINE LEUKOCYTE ESTERASE 3+ (NEGATIVE); URINE NITRATE Negative (NEGATIVE); URINE PROTEIN(semi-quant) 1+ (NEGATIVE); URINE RBC 20-50 /hpf; URINE UROBILINOGEN Negative (NEGATIVE)
[2019-09-14] MEDS ORDERED: CEFTIN500 MG PO (07:18)
[2019-09-14 07:54] VITALS: PULSE 60; TEMP 98
== END 2019-09-14 07:51 | disposition home or self-care (01) ==
LOC: COL.ER 05:40
PROVIDERS: Emergency Medicine
DX: N10 Acute pyelonephritis (principal); I25.10 Atherosclerotic heart disease of native coronary artery without angina pectoris; Z79.82 Long term (current) use of aspirin; Z79.02 Long term (current) use of antithrombotics/antiplatelets; Z95.5 Presence of coronary angioplasty implant and graft

== ENCOUNTER 2019-09-16 00:10 | Emergency (ER) | payer MEDICARE ==
[~2019-09-16] VITALS: Ht 157.5 cm; Wt 57.3 kg
[2019-09-16 00:17] VITALS: BP 110/69
[2019-09-16 01:54] VITALS: PULSE 80; TEMP 98
== END 2019-09-16 01:54 | disposition home or self-care (01) ==
LOC: COL.ER 00:10
DX: N12 Tubulo-interstitial nephritis, not specified as acute or chronic (principal); I25.10 Atherosclerotic heart disease of native coronary artery without angina pectoris; Z95.5 Presence of coronary angioplasty implant and graft; Z88.6 Allergy status to analgesic agent; Z88.0 Allergy status to penicillin

== ENCOUNTER 2019-09-21 01:33 | Emergency (ER) | payer MEDICARE ==
[~2019-09-21] VITALS: Ht 157.5 cm; Wt 57.3 kg
[2019-09-21 01:55] LABS: BASO % 0.3 % (0.0-2.0); EOS # 0.2 (0.0-0.7); EOS % 1.7 % (0-4.0); GRAN % 60.9 % (42.2-75.2); HEMATOCRIT 41.5 % (37.0-47.0); HEMOGLOBIN 13.4 g/dl (12.5-16.0); LYMPH # 3.2 (1.2-3.4); LYMPH % 24.1 % (20.0-51.0); MEAN CELL VOLUME 88 fl (80.0-100.0); MEAN CORPUSCULAR HEMOGLOBIN 29 pg (27.0-31.0); MEAN CORPUSCULAR HGB CONC 32 g/dl (33.0-37.0); MEAN PLATELET VOLUME 9.4 fl (7.4-10.4); MONO # 1.7 (0.1-0.6); MONO % 12.6 % (1.7-9.3); PLATELET COUNT 232 K/mm3 (130-400); REDCELL DISTRIBUTION WIDTH-CV 13.8 % (11.5-14.5)
[2019-09-21 02:07] LABS: BILIRUBIN,TOTAL 0.6 mg/dL (0.0-1.0); CALCIUM 9.5 mg/dL (8.4-10.2); CREATININE, serum 0.77 (0.52-1.25); POTASSIUM 4.4 mmol/L (3.4-5.0); TOTAL PROTEIN 7.9 gm/dL (6.4-8.2)
[2019-09-21 02:16] LABS: COLLECTION METHOD CLEAN CATCH
[2019-09-21 02:46] LABS: MUCOUS Present /lpf; PH 5 (5-8); SQUAMOUS EPITHELIAL 0-2 /hpf; URINE APPEARANCE Clear; URINE BACTERIA None Seen /hpf; URINE BILIRUBIN Negative (NEGATIVE); URINE BLOOD Negative (NEGATIVE); URINE COLOR Yellow; URINE GLUCOSE Negative (NEGATIVE); URINE KETONE Negative (NEGATIVE); URINE LEUKOCYTE ESTERASE Trace (NEGATIVE); URINE NITRATE Negative (NEGATIVE); URINE PROTEIN(semi-quant) Negative (NEGATIVE); URINE RBC 0-2 /hpf; URINE UROBILINOGEN Negative (NEGATIVE)
[2019-09-21 03:18] VITALS: BP 118/64; PULSE 64; TEMP 98
[2019-09-21] MEDS ORDERED: FLEXERIL5 MG PO ×2 (03:19→03:35)
[2019-09-21] MEDS ORDERED: ULTRAM 50MG TAB50 MG PO (03:36)
== END 2019-09-21 03:49 | disposition home or self-care (01) ==
LOC: COL.ER 01:33
PROVIDERS: Emergency Medicine
DX: N39.0 Urinary tract infection, site not specified (principal); M54.9 Dorsalgia, unspecified; I10 Essential (primary) hypertension; I25.10 Atherosclerotic heart disease of native coronary artery without angina pectoris; I25.2 Old myocardial infarction; Z79.82 Long term (current) use of aspirin; Z88.1 Allergy status to other antibiotic agents; Z88.0 Allergy status to penicillin; Z88.8 Allergy status to other drugs, medicaments and biological substances; Z88.6 Allergy status to analgesic agent; Z95.5 Presence of coronary angioplasty implant and graft
CPT/HCPCS: J1100; J1200; Q9967

== ENCOUNTER 2019-10-15 08:21 | Emergency (ER) | payer MEDICARE ==
[~2019-10-15] VITALS: Ht 157.5 cm; Wt 57.3 kg
[~2019-10-15 08:21] MED LIST changes: +FLEXERIL5 MG PO
[2019-10-15 08:29] VITALS: TEMP 97.9
[2019-10-15 09:12] LABS: BASO % 0.5 % (0.0-2.0); EOS # 0.2 (0.0-0.7); EOS % 2.2 % (0-4.0); GRAN # 4.1 (1.4-6.5); GRAN % 53.4 % (42.2-75.2); HEMATOCRIT 39.4 % (37.0-47.0); HEMOGLOBIN 12.6 g/dl (12.5-16.0); LYMPH # 2.5 (1.2-3.4); LYMPH % 32.9 % (20.0-51.0); MEAN CELL VOLUME 92 fl (80.0-100.0); MEAN CORPUSCULAR HEMOGLOBIN 29 pg (27.0-31.0); MEAN CORPUSCULAR HGB CONC 32 g/dl (33.0-37.0); MEAN PLATELET VOLUME 10.5 fl (7.4-10.4); MONO # 0.8 (0.1-0.6); MONO % 10.7 % (1.7-9.3); PLATELET COUNT 204 K/mm3 (130-400)
[2019-10-15 09:22] LABS: ALANINE AMINOTRANSFERASE 43 U/L (4-34); ALBUMIN 4.2 gm/dL (3.5-5.0); ALKALINE PHOSPHATASE 63 U/L (50-136); ANION GAP 8 mmol/L (7-16); AST,SGOT 36 U/L (15-37); BILIRUBIN,TOTAL 0.5 mg/dL (0.0-1.0); BLOOD UREA NITROGEN 28 mg/dL (7-17); CALCIUM 9.3 mg/dL (8.4-10.2); CARBON DIOXIDE 25 mmol/L (22-30); CHLORIDE 107 mmol/L (98-107); CREATININE, serum 0.79 (0.52-1.25); GLUCOSE 82 mg/dL (74-106); MAGNESIUM 2.2 mg/dL (1.6-2.3); POTASSIUM 4.4 mmol/L (3.4-5.0); SODIUM 139 mmol/L (137-145); TOTAL PROTEIN 7.6 gm/dL (6.4-8.2)
[2019-10-15 09:48] LABS: TROPONIN-I < 0.012 ng/mL (0.000-0.035)
[2019-10-15 10:00] LABS: COLLECTION METHOD CLEAN CATCH
[2019-10-15 10:06] LABS: MUCOUS Present /lpf; PH 5 (5-8); URINE APPEARANCE Clear; URINE BACTERIA None Seen /hpf; URINE BILIRUBIN Negative (NEGATIVE); URINE BLOOD Negative (NEGATIVE); URINE COLOR Yellow; URINE GLUCOSE Negative (NEGATIVE); URINE KETONE Negative (NEGATIVE); URINE LEUKOCYTE ESTERASE 3+ (NEGATIVE); URINE NITRATE Negative (NEGATIVE); URINE PROTEIN(semi-quant) Negative (NEGATIVE); URINE UROBILINOGEN Negative (NEGATIVE)
[2019-10-15 11:34] VITALS: BP 111/66; PULSE 45
== END 2019-10-15 11:34 | disposition home or self-care (01) ==
LOC: COL.ER 08:21
PROVIDERS: Emergency Medicine
DX: N39.0 Urinary tract infection, site not specified (principal); R00.1 Bradycardia, unspecified; I25.10 Atherosclerotic heart disease of native coronary artery without angina pectoris; Z95.5 Presence of coronary angioplasty implant and graft; Z79.82 Long term (current) use of aspirin; Z88.0 Allergy status to penicillin; Z88.1 Allergy status to other antibiotic agents; Z88.6 Allergy status to analgesic agent; Z88.8 Allergy status to other drugs, medicaments and biological substances

== ENCOUNTER 2020-01-30 05:55 | Emergency (ER) | payer MEDICARE ==
[~2020-01-30] VITALS: Ht 157.5 cm; Wt 57.7 kg
[~2020-01-30 05:55] MED LIST changes: +SEPTRA DS 8001 TAB PO
[2020-01-30 06:12] VITALS: TEMP 98.4
[2020-01-30 06:49] LABS: ALANINE AMINOTRANSFERASE 24 U/L (4-34); ALBUMIN 3.8 gm/dL (3.5-5.0); ALKALINE PHOSPHATASE 68 U/L (50-136); ANION GAP 7 mmol/L (7-16); AST,SGOT 35 U/L (15-37); BILIRUBIN,TOTAL 0.5 mg/dL (0.0-1.0); BLOOD UREA NITROGEN 27 mg/dL (7-17); CALCIUM 8.9 mg/dL (8.4-10.2); CARBON DIOXIDE 25 mmol/L (22-30); CHLORIDE 105 mmol/L (98-107); CREATININE, serum 0.94 (0.52-1.25); GLUCOSE 96 mg/dL (74-106); POTASSIUM 4.5 mmol/L (3.4-5.0); SODIUM 137 mmol/L (137-145); TOTAL PROTEIN 7.2 gm/dL (6.4-8.2)
[2020-01-30 06:50] LABS: BASO # 0.1 (0.0-0.2); BASO % 0.4 % (0.0-2.0); EOS # 0.1 (0.0-0.7); EOS % 0.9 % (0-4.0); GRAN # 10.5 (1.4-6.5); GRAN % 76.5 % (42.2-75.2); HEMATOCRIT 37.8 % (37.0-47.0); HEMOGLOBIN 12.2 g/dl (12.5-16.0); LYMPH # 1.7 (1.2-3.4); LYMPH % 12.6 % (20.0-51.0); MEAN CELL VOLUME 90 fl (80.0-100.0); MEAN CORPUSCULAR HEMOGLOBIN 29 pg (27.0-31.0); MEAN CORPUSCULAR HGB CONC 32 g/dl (33.0-37.0); MEAN PLATELET VOLUME 9.9 fl (7.4-10.4); MONO # 1.3 (0.1-0.6); MONO % 9.1 % (1.7-9.3); PLATELET COUNT 238 K/mm3 (130-400)
[2020-01-30 07:01] LABS: TROPONIN-I < 0.012 ng/mL (0.000-0.035)
[2020-01-30] MEDS ORDERED: ALDACTONE 25MG25 M1 PO (08:36)
[2020-01-30] MEDS ORDERED: CLARITIN 1010 MG/TAB PO (08:59)
[2020-01-30 10:57] VITALS: BP 119/70; PULSE 66
== END 2020-01-30 10:57 | disposition home or self-care (01) ==
LOC: COL.ER 05:55
PROVIDERS: Emergency Medicine
DX: R07.89 Other chest pain (principal); I25.2 Old myocardial infarction; Z95.9 Presence of cardiac and vascular implant and graft, unspecified; Z88.0 Allergy status to penicillin; Z88.8 Allergy status to other drugs, medicaments and biological substances; Z88.1 Allergy status to other antibiotic agents; Z88.6 Allergy status to analgesic agent; Z79.82 Long term (current) use of aspirin

== ENCOUNTER 2020-01-31 05:52 | Emergency (ER) | payer MEDICARE ==
[~2020-01-31 05:52] MED LIST changes: +ALDACTONE 25MG25 M1 PO
== END 2020-01-31 05:56 | disposition left against medical advice (07) ==
LOC: COL.ER 05:52
DX: Z48.817 Encounter for surgical aftercare following surgery on the skin and subcutaneous tissue (principal); Z53.21 Procedure and treatment not carried out due to patient leaving prior to being seen by health care provider; R45.4 Irritability and anger; Z95.5 Presence of coronary angioplasty implant and graft; Z88.0 Allergy status to penicillin; Z88.8 Allergy status to other drugs, medicaments and biological substances; Z88.6 Allergy status to analgesic agent; Z88.1 Allergy status to other antibiotic agents; Z79.82 Long term (current) use of aspirin

== ENCOUNTER 2020-02-03 23:09 | Emergency (ER) | payer MEDICARE ==
[~2020-02-03] VITALS: Ht 157.5 cm; Wt 58.2 kg
[2020-02-04 00:12] LABS: BASO % 0.4 % (0.0-2.0); EOS # 0.2 (0.0-0.7); EOS % 2.4 % (0-4.0); GRAN # 5.5 (1.4-6.5); GRAN % 59.5 % (42.2-75.2); HEMATOCRIT 38.4 % (37.0-47.0); HEMOGLOBIN 12.5 g/dl (12.5-16.0); LYMPH # 2.3 (1.2-3.4); LYMPH % 24.7 % (20.0-51.0); MEAN CELL VOLUME 90 fl (80.0-100.0); MEAN CORPUSCULAR HEMOGLOBIN 29 pg (27.0-31.0); MEAN CORPUSCULAR HGB CONC 33 g/dl (33.0-37.0); MEAN PLATELET VOLUME 9.7 fl (7.4-10.4); MONO # 1.2 (0.1-0.6); MONO % 12.5 % (1.7-9.3); PLATELET COUNT 244 K/mm3 (130-400); RED BLOOD COUNT 4.27 M/mm3 (4.10-5.30); REDCELL DISTRIBUTION WIDTH-CV 12.9 % (11.5-14.5)
[2020-02-04 00:19] LABS: CREATININE, serum 0.71 (0.52-1.25); POTASSIUM 4.5 mmol/L (3.4-5.0)
[2020-02-04] MEDS ORDERED: CLEOCIN HC150 MG/CAP PO ×2 (00:27→14:57)
[2020-02-04 00:45] VITALS: BP 126/72; PULSE 70; TEMP 97.9
== END 2020-02-04 00:46 | disposition home or self-care (01) ==
LOC: COL.ER 23:09
PROVIDERS: Family Medicine
DX: M79.672 Pain in left foot (principal); Z79.82 Long term (current) use of aspirin
CPT/HCPCS: J1650

== ENCOUNTER 2020-02-07 04:47 | Emergency (ER) | payer MEDICARE ==
[~2020-02-07] VITALS: Ht 157.5 cm; Wt 58.2 kg
[~2020-02-07 04:47] MED LIST changes: +CLEOCIN HC150 MG/CAP PO
[2020-02-07 04:51] VITALS: TEMP 98.8
[2020-02-07 05:19] VITALS: BP 148/70; PULSE 78
== END 2020-02-07 05:19 | disposition home or self-care (01) ==
LOC: COL.ER 04:47
DX: M79.675 Pain in left toe(s) (principal); I25.10 Atherosclerotic heart disease of native coronary artery without angina pectoris; I25.2 Old myocardial infarction; Z86.718 Personal history of other venous thrombosis and embolism; Z88.0 Allergy status to penicillin; Z88.8 Allergy status to other drugs, medicaments and biological substances; Z88.1 Allergy status to other antibiotic agents; Z79.82 Long term (current) use of aspirin

== ENCOUNTER 2020-02-10 21:06 | Emergency (ER) | payer MEDICARE ==
[~2020-02-10] VITALS: Ht 157.5 cm; Wt 58.2 kg
[2020-02-10 21:10] VITALS: TEMP 98
[2020-02-10 21:41] LABS: BASO # 0.1 (0.0-0.2); BASO % 0.4 % (0.0-2.0); EOS # 0.2 (0.0-0.7); EOS % 1.5 % (0-4.0); GRAN # 9.3 (1.4-6.5); GRAN % 67.9 % (42.2-75.2); HEMATOCRIT 37.4 % (37.0-47.0); LYMPH # 2.7 (1.2-3.4); MEAN CELL VOLUME 91 fl (80.0-100.0); MEAN CORPUSCULAR HEMOGLOBIN 29 pg (27.0-31.0); MEAN CORPUSCULAR HGB CONC 32 g/dl (33.0-37.0); MEAN PLATELET VOLUME 9.6 fl (7.4-10.4); MONO # 1.4 (0.1-0.6); MONO % 9.8 % (1.7-9.3); PLATELET COUNT 229 K/mm3 (130-400); RED BLOOD COUNT 4.13 M/mm3 (4.10-5.30); REDCELL DISTRIBUTION WIDTH-CV 12.9 % (11.5-14.5)
[2020-02-10 21:52] LABS: ALANINE AMINOTRANSFERASE 25 U/L (4-34); ALBUMIN 3.8 gm/dL (3.5-5.0); ALKALINE PHOSPHATASE 61 U/L (50-136); ANION GAP 10 mmol/L (7-16); AST,SGOT 30 U/L (15-37); BILIRUBIN,TOTAL 0.3 mg/dL (0.0-1.0); BLOOD UREA NITROGEN 22 mg/dL (7-17); CALCIUM 8.7 mg/dL (8.4-10.2); CARBON DIOXIDE 23 mmol/L (22-30); CHLORIDE 105 mmol/L (98-107); CREATININE, serum 0.95 (0.52-1.25); GLUCOSE 107 mg/dL (74-106); POTASSIUM 3.9 mmol/L (3.4-5.0); SODIUM 138 mmol/L (137-145); TOTAL PROTEIN 6.9 gm/dL (6.4-8.2)
[2020-02-10 22:06] LABS: TROPONIN-I < 0.012 ng/mL (0.000-0.035)
[2020-02-11 00:41] VITALS: BP 114/70; PULSE 76
== END 2020-02-11 00:41 | disposition home or self-care (01) ==
LOC: COL.ER 21:06
PROVIDERS: Emergency Medicine
DX: R07.9 Chest pain, unspecified (principal); I25.10 Atherosclerotic heart disease of native coronary artery without angina pectoris; I25.2 Old myocardial infarction; Z95.5 Presence of coronary angioplasty implant and graft; Z88.0 Allergy status to penicillin; Z88.1 Allergy status to other antibiotic agents; Z88.6 Allergy status to analgesic agent; Z88.8 Allergy status to other drugs, medicaments and biological substances; Z79.82 Long term (current) use of aspirin

== ENCOUNTER 2020-05-07 03:33 | Emergency (ER) | payer MEDICARE ==
[~2020-05-07] VITALS: Ht 157.5 cm; Wt 57.7 kg
[2020-05-07 04:01] VITALS: TEMP 97.4
[2020-05-07 04:19] LABS: BASO % 0.3 % (0.0-2.0); EOS # 0.2 (0.0-0.7); EOS % 1.8 % (0-4.0); GRAN # 5.1 (1.4-6.5); HEMATOCRIT 40.3 % (37.0-47.0); HEMOGLOBIN 13.3 g/dl (12.5-16.0); LYMPH # 3.2 (1.2-3.4); LYMPH % 32.2 % (20.0-51.0); MEAN CELL VOLUME 88 fl (80.0-100.0); MEAN CORPUSCULAR HEMOGLOBIN 29 pg (27.0-31.0); MEAN CORPUSCULAR HGB CONC 33 g/dl (33.0-37.0); MEAN PLATELET VOLUME 9.8 fl (7.4-10.4); MONO # 1.3 (0.1-0.6); MONO % 13.4 % (1.7-9.3); PLATELET COUNT 252 K/mm3 (130-400); RED BLOOD COUNT 4.56 M/mm3 (4.10-5.30); REDCELL DISTRIBUTION WIDTH-CV 12.7 % (11.5-14.5)
[2020-05-07 04:30] LABS: ALANINE AMINOTRANSFERASE 16 U/L (4-34); ALBUMIN 4.3 gm/dL (3.5-5.0); ALKALINE PHOSPHATASE 69 U/L (50-136); ANION GAP 11 mmol/L (7-16); AST,SGOT 26 U/L (15-37); BILIRUBIN,TOTAL 0.3 mg/dL (0.0-1.0); BLOOD UREA NITROGEN 28 mg/dL (7-17); CALCIUM 9.1 mg/dL (8.4-10.2); CARBON DIOXIDE 25 mmol/L (22-30); CHLORIDE 105 mmol/L (98-107); CREATININE, serum 0.73 (0.52-1.25); GLUCOSE 95 mg/dL (74-106); POTASSIUM 4.1 mmol/L (3.4-5.0); SODIUM 141 mmol/L (137-145); TOTAL PROTEIN 7.7 gm/dL (6.4-8.2)
[2020-05-07 04:44] LABS: TROPONIN-I < 0.012 ng/mL (0.000-0.035)
[2020-05-07 07:35] VITALS: BP 113/72; PULSE 59
== END 2020-05-07 08:00 | disposition left against medical advice (07) ==
LOC: COL.ER 03:33
PROVIDERS: Family Medicine
DX: R07.89 Other chest pain (principal); I25.10 Atherosclerotic heart disease of native coronary artery without angina pectoris; Z95.9 Presence of cardiac and vascular implant and graft, unspecified; Z88.0 Allergy status to penicillin; Z88.8 Allergy status to other drugs, medicaments and biological substances; Z88.6 Allergy status to analgesic agent; Z79.82 Long term (current) use of aspirin

== ENCOUNTER 2020-06-24 04:27 | Emergency (ER) | payer OTHER, MEDICARE ==
[~2020-06-24] VITALS: Ht 157.5 cm; Wt 58.2 kg
[~2020-06-24 04:27] MED LIST changes: -ILOTYCIN5 MG/GM OD; -LIDODERM 5% PATC1 EA TP; -PRINIVIL10 MG PO; -ROXICODONE 55 MG/TAB PO; -TYLENOL 325MG325 MG PO; -VIGAMOX 0.5% 3 M3 ML OD
[2020-06-24 04:37] VITALS: TEMP 97.4
[2020-06-24 05:14] LABS: BASO # 0.1 (0.0-0.2); BASO % 0.6 % (0.0-2.0); EOS # 0.2 (0.0-0.7); EOS % 2.3 % (0-4.0); GRAN # 4.7 (1.4-6.5); GRAN % 54.5 % (42.2-75.2); HEMATOCRIT 39.1 % (37.0-47.0); HEMOGLOBIN 12.5 g/dl (12.5-16.0); LYMPH # 2.7 (1.2-3.4); LYMPH % 31.6 % (20.0-51.0); MEAN CELL VOLUME 90 fl (80.0-100.0); MEAN CORPUSCULAR HEMOGLOBIN 29 pg (27.0-31.0); MEAN CORPUSCULAR HGB CONC 32 g/dl (33.0-37.0); MEAN PLATELET VOLUME 9.6 fl (7.4-10.4); MONO # 0.9 (0.1-0.6); MONO % 10.8 % (1.7-9.3); PLATELET COUNT 229 K/mm3 (130-400); RED BLOOD COUNT 4.35 M/mm3 (4.10-5.30); REDCELL DISTRIBUTION WIDTH-CV 13.2 % (11.5-14.5)
[2020-06-24 05:58] LABS: PROTHROMBIN TIME 11.1 SECONDS (9.7-12.8)
[2020-06-24 06:01] LABS: PARTIAL THROMBOPLASTIN TIME 30.1 SECONDS (26.0-37.0)
[2020-06-24] MEDS ORDERED: TYLENOL 325MG325 MG PO (06:31)
[2020-06-24] MEDS ORDERED: ROXICODONE 55 MG/TAB PO (06:33)
[2020-06-24 06:36] VITALS: BP 124/71; PULSE 51
== END 2020-06-24 06:40 | disposition home or self-care (01) ==
LOC: COL.ER 04:27
PROVIDERS: Emergency Medicine
DX: M79.604 Pain in right leg (principal); M79.605 Pain in left leg; R79.1 Abnormal coagulation profile; Z88.0 Allergy status to penicillin; Z88.1 Allergy status to other antibiotic agents; Z88.5 Allergy status to narcotic agent; Z91.041 Radiographic dye allergy status; Z88.7 Allergy status to serum and vaccine; Z88.6 Allergy status to analgesic agent; Z88.2 Allergy status to sulfonamides; Z86.72 Personal history of thrombophlebitis; Z79.82 Long term (current) use of aspirin
CPT/HCPCS: J1650

== ENCOUNTER → 2020-06-24 | Outpatient (CLI) | payer MEDICARE, OTHER ==
[~2020-06-24] MED LIST changes: +ILOTYCIN5 MG/GM OD; +LIDODERM 5% PATC1 EA TP; +PRINIVIL10 MG PO; +ROXICODONE 55 MG/TAB PO; +TYLENOL 325MG325 MG PO; +VIGAMOX 0.5% 3 M3 ML OD
== END ==
LOC: COL.VAS 08:15
DX: M79.89 Other specified soft tissue disorders (principal); M79.606 Pain in leg, unspecified; R79.1 Abnormal coagulation profile

== ENCOUNTER 2020-06-25 01:56 | Emergency (ER) | payer MEDICARE, OTHER ==
[~2020-06-25] VITALS: Ht 157.5 cm; Wt 58.2 kg
[~2020-06-25 01:56] MED LIST changes: +ROXICODONE 55 MG/TAB PO; +TYLENOL 325MG325 MG PO
[2020-06-25 02:09] VITALS: BP 125/81; PULSE 65; TEMP 97.4
== END 2020-06-25 02:36 | disposition home or self-care (01) ==
LOC: COL.ER 01:56
DX: M54.41 Lumbago with sciatica, right side (principal); Z88.0 Allergy status to penicillin; Z88.1 Allergy status to other antibiotic agents; Z88.5 Allergy status to narcotic agent; Z88.7 Allergy status to serum and vaccine; Z91.041 Radiographic dye allergy status; Z79.82 Long term (current) use of aspirin; Z79.891 Long term (current) use of opiate analgesic

== ENCOUNTER 2020-07-18 05:13 | Emergency (ER) | payer MEDICARE, OTHER ==
[~2020-07-18] VITALS: Ht 157.5 cm; Wt 60.0 kg
[2020-07-18 05:21] VITALS: TEMP 97
[2020-07-18 07:50] VITALS: BP 118/74; PULSE 69
== END 2020-07-18 07:50 | disposition home or self-care (01) ==
LOC: COL.ER 05:13
DX: M54.5 Low back pain (principal); M79.604 Pain in right leg; I25.2 Old myocardial infarction; Z88.6 Allergy status to analgesic agent; V49.9XXA Car occupant (driver) (passenger) injured in unspecified traffic accident, initial encounter

== ENCOUNTER 2020-07-22 08:47 | Emergency (ER) | payer MEDICARE, OTHER ==
[~2020-07-22] VITALS: Ht 157.5 cm; Wt 60.0 kg
[2020-07-22 09:00] VITALS: BP 120/63; TEMP 97.7
[2020-07-22 10:41] VITALS: PULSE 57
[2020-07-23] MEDS ORDERED: LIDODERM 5% PATC1 EA TP (03:46)
== END 2020-07-22 10:41 | disposition home or self-care (01) ==
LOC: COL.ER 08:47
DX: S30.860A Insect bite (nonvenomous) of lower back and pelvis, initial encounter (principal); I25.2 Old myocardial infarction; Z79.899 Other long term (current) drug therapy; W57.XXXA Bitten or stung by nonvenomous insect and other nonvenomous arthropods, initial encounter

== ENCOUNTER 2020-07-23 03:28 | Emergency (ER) | payer MEDICARE, OTHER ==
[~2020-07-23] VITALS: Ht 157.5 cm; Wt 60.0 kg
[2020-07-23] MEDS ORDERED: LIDODERM 5% PATC1 EA TP (03:46)
[2020-07-23 03:56] VITALS: BP 137/83; PULSE 78; TEMP 98
== END 2020-07-23 03:56 | disposition home or self-care (01) ==
LOC: COL.ER 03:28
DX: M79.605 Pain in left leg (principal); M79.604 Pain in right leg; Z88.6 Allergy status to analgesic agent

== ENCOUNTER 2020-07-24 00:04 | Emergency (ER) | payer MEDICARE, OTHER ==
[~2020-07-24] VITALS: Ht 157.5 cm; Wt 60.0 kg
[~2020-07-24 00:04] MED LIST changes: +LIDODERM 5% PATC1 EA TP
[2020-07-24 00:25] VITALS: TEMP 97.9
[2020-07-24 01:02] VITALS: BP 115/61; PULSE 67
== END 2020-07-24 01:02 | disposition home or self-care (01) ==
LOC: COL.ER 00:04
DX: T78.40XA Allergy, unspecified, initial encounter (principal); I25.10 Atherosclerotic heart disease of native coronary artery without angina pectoris; Z79.82 Long term (current) use of aspirin

== ENCOUNTER 2020-07-28 01:29 | Emergency (ER) | payer MEDICARE, OTHER ==
[~2020-07-28] VITALS: Ht 157.5 cm; Wt 59.1 kg
[2020-07-28 04:09] VITALS: BP 120/73; PULSE 62; TEMP 98.2
== END 2020-07-28 04:12 | disposition home or self-care (01) ==
LOC: COL.ER 01:29
DX: M79.661 Pain in right lower leg (principal); R79.1 Abnormal coagulation profile; I10 Essential (primary) hypertension; I25.10 Atherosclerotic heart disease of native coronary artery without angina pectoris; I25.2 Old myocardial infarction; Z79.899 Other long term (current) drug therapy; Z79.02 Long term (current) use of antithrombotics/antiplatelets; Z86.718 Personal history of other venous thrombosis and embolism; Z88.6 Allergy status to analgesic agent; Z79.82 Long term (current) use of aspirin; Z88.8 Allergy status to other drugs, medicaments and biological substances

== ENCOUNTER 2020-08-03 01:22 | Emergency (ER) | payer MEDICARE, OTHER ==
[~2020-08-03] VITALS: Ht 157.5 cm; Wt 58.2 kg
[2020-08-03] MEDS ORDERED: FLEXERIL5 MG PO (02:24)
[2020-08-03] MEDS ORDERED: PREDNISONE20 MG PO (02:24)
[2020-08-03 03:33] VITALS: BP 118/69; PULSE 58; TEMP 98
== END 2020-08-03 03:36 | disposition home or self-care (01) ==
LOC: COL.ER 01:22
DX: R20.0 Anesthesia of skin (principal); R20.2 Paresthesia of skin; M62.48 Contracture of muscle, other site; I25.10 Atherosclerotic heart disease of native coronary artery without angina pectoris; Z79.82 Long term (current) use of aspirin
CPT/HCPCS: J7512

== ENCOUNTER 2020-08-04 03:43 | Emergency (ER) | payer MEDICARE, OTHER ==
[~2020-08-04] VITALS: Ht 157.5 cm; Wt 54.5 kg
[2020-08-04 04:28] LABS: BASO % 0.5 % (0.0-2.0); EOS # 0.1 (0.0-0.7); EOS % 1.5 % (0-4.0); GRAN # 3.5 (1.4-6.5); GRAN % 45.7 % (42.2-75.2); HEMOGLOBIN 11.1 g/dl (12.5-16.0); LYMPH # 3.2 (1.2-3.4); LYMPH % 40.6 % (20.0-51.0); MEAN CELL VOLUME 91 fl (80.0-100.0); MEAN CORPUSCULAR HEMOGLOBIN 29 pg (27.0-31.0); MEAN CORPUSCULAR HGB CONC 32 g/dl (33.0-37.0); MEAN PLATELET VOLUME 10.1 fl (7.4-10.4); MONO # 0.9 (0.1-0.6); MONO % 11.6 % (1.7-9.3); PLATELET COUNT 204 K/mm3 (130-400); RED BLOOD COUNT 3.83 M/mm3 (4.10-5.30); REDCELL DISTRIBUTION WIDTH-CV 13.3 % (11.5-14.5)
[2020-08-04 04:33] LABS: HEMATOCRIT 34.7 % (37.0-47.0)
[2020-08-04 04:43] LABS: ALANINE AMINOTRANSFERASE 49 U/L (4-34); ALBUMIN 3.6 gm/dL (3.5-5.0); ALKALINE PHOSPHATASE 60 U/L (50-136); ANION GAP 7 mmol/L (7-16); AST,SGOT 60 U/L (15-37); BILIRUBIN,TOTAL 0.4 mg/dL (0.0-1.0); BLOOD UREA NITROGEN 23 mg/dL (7-17); CALCIUM 8.8 mg/dL (8.4-10.2); CARBON DIOXIDE 21 mmol/L (22-30); CHLORIDE 111 mmol/L (98-107); CREATINE KINASE 85 U/L (30-135); CREATININE, serum 0.74 (0.52-1.25); GLUCOSE 96 mg/dL (74-106); LIPASE 105 U/L (23-300); POTASSIUM 3.6 mmol/L (3.4-5.0); SODIUM 139 mmol/L (137-145); TOTAL PROTEIN 6.9 gm/dL (6.4-8.2)
[2020-08-04 05:06] LABS: TROPONIN-I < 0.012 ng/mL (0.000-0.035)
[2020-08-04 06:02] VITALS: BP 121/76; PULSE 65; TEMP 98
== END 2020-08-04 06:02 | disposition home or self-care (01) ==
LOC: COL.ER 03:43
PROVIDERS: Emergency Medicine
DX: K21.9 Gastro-esophageal reflux disease without esophagitis (principal); I25.10 Atherosclerotic heart disease of native coronary artery without angina pectoris; I25.2 Old myocardial infarction; Z95.9 Presence of cardiac and vascular implant and graft, unspecified; Z88.6 Allergy status to analgesic agent; Z79.82 Long term (current) use of aspirin

== ENCOUNTER 2020-08-09 20:39 | Emergency (ER) | payer MEDICARE ==
[~2020-08-09] VITALS: Ht 157.5 cm; Wt 57.7 kg
[2020-08-09 21:01] VITALS: TEMP 97.7
[2020-08-09 21:48] LABS: CALCIUM 9.2 mg/dL (8.4-10.2); CREATININE, serum 0.76 (0.52-1.25); POTASSIUM 4.7 mmol/L (3.4-5.0)
[2020-08-09] MEDS ORDERED: FLEXERIL 1010 MG/TAB PO (22:27)
[2020-08-09 22:33] VITALS: BP 102/66; PULSE 63
== END 2020-08-09 22:33 | disposition home or self-care (01) ==
LOC: COL.ER 20:39
PROVIDERS: Emergency Medicine
DX: M54.5 Low back pain (principal); R25.2 Cramp and spasm; I25.2 Old myocardial infarction; Z88.6 Allergy status to analgesic agent

== ENCOUNTER 2020-08-18 04:58 | Emergency (ER) | payer MEDICARE ==
[~2020-08-18] VITALS: Ht 157.5 cm; Wt 59.1 kg
[2020-08-18 05:03] VITALS: TEMP 98.8
[2020-08-18] MEDS ORDERED: FLEXERIL5 MG PO (05:25)
[2020-08-18 05:48] VITALS: BP 112/71; PULSE 65
== END 2020-08-18 05:48 | disposition home or self-care (01) ==
LOC: COL.ER 04:58
DX: R20.2 Paresthesia of skin (principal); I25.10 Atherosclerotic heart disease of native coronary artery without angina pectoris; I25.2 Old myocardial infarction; Z95.5 Presence of coronary angioplasty implant and graft; Z91.14 Patient's other noncompliance with medication regimen; Z79.82 Long term (current) use of aspirin
CPT/HCPCS: J7512

== ENCOUNTER 2020-08-23 12:42 | Emergency (ER) | payer MEDICARE ==
[~2020-08-23] VITALS: Ht 157.5 cm; Wt 56.4 kg
[2020-08-23 12:45] VITALS: TEMP 98.1
[2020-08-23 13:39] LABS: BASO % 0.4 % (0.0-2.0); EOS # 0.1 (0.0-0.7); EOS % 1.2 % (0-4.0); GRAN # 4.4 (1.4-6.5); GRAN % 56.7 % (42.2-75.2); HEMOGLOBIN 13.8 g/dl (12.5-16.0); LYMPH # 2.4 (1.2-3.4); LYMPH % 31.5 % (20.0-51.0); MEAN CELL VOLUME 90 fl (80.0-100.0); MEAN CORPUSCULAR HEMOGLOBIN 30 pg (27.0-31.0); MEAN CORPUSCULAR HGB CONC 33 g/dl (33.0-37.0); MEAN PLATELET VOLUME 10.2 fl (7.4-10.4); MONO # 0.8 (0.1-0.6); MONO % 9.9 % (1.7-9.3); PLATELET COUNT 235 K/mm3 (130-400); RED BLOOD COUNT 4.68 M/mm3 (4.10-5.30); REDCELL DISTRIBUTION WIDTH-CV 13.3 % (11.5-14.5)
[2020-08-23 13:48] LABS: ALBUMIN 4.5 gm/dL (3.5-5.0); BILIRUBIN,TOTAL 0.8 mg/dL (0.0-1.0); CALCIUM 9.3 mg/dL (8.4-10.2); CREATININE, serum 1.2 (0.52-1.25); POTASSIUM 5.4 mmol/L (3.4-5.0); TOTAL PROTEIN 8.4 gm/dL (6.4-8.2)
[2020-08-23 13:58] LABS: TROPONIN-I 0.021 ng/mL (0.000-0.035)
[2020-08-23 14:01] LABS: MAGNESIUM 2.2 mg/dL (1.6-2.3)
[2020-08-23 16:04] LABS: COLLECTION METHOD CLEAN CATCH
[2020-08-23 16:16] LABS: AMORPHOUS CRYSTAL Present /uL; MUCOUS Present /lpf; PH 5 (5-8); URINE APPEARANCE Cloudy; URINE BACTERIA Moderate /hpf; URINE BILIRUBIN Negative (NEGATIVE); URINE BLOOD 2+ (NEGATIVE); URINE COLOR Yellow; URINE GLUCOSE Negative (NEGATIVE); URINE KETONE Trace (NEGATIVE); URINE LEUKOCYTE ESTERASE 3+ (NEGATIVE); URINE NITRATE Negative (NEGATIVE); URINE PROTEIN(semi-quant) 1+ (NEGATIVE); URINE RBC 20-50 /hpf; URINE UROBILINOGEN Negative (NEGATIVE)
[2020-08-23 17:05] VITALS: BP 135/78; PULSE 60
== END 2020-08-23 17:05 | disposition home or self-care (01) ==
LOC: COL.ER 12:42
PROVIDERS: Nurse Practitioner
DX: I95.9 Hypotension, unspecified (principal); Z88.6 Allergy status to analgesic agent; Z79.82 Long term (current) use of aspirin
CPT/HCPCS: J7030

== ENCOUNTER 2020-12-14 04:02 | Emergency (ER) | payer MEDICARE ==
[~2020-12-14] VITALS: Ht 157.5 cm; Wt 55.5 kg
[2020-12-14 04:07] VITALS: BP 118/55; PULSE 63
== END 2020-12-14 04:43 | disposition home or self-care (01) ==
LOC: COL.ER 04:02
DX: L29.9 Pruritus, unspecified (principal); I10 Essential (primary) hypertension; I25.10 Atherosclerotic heart disease of native coronary artery without angina pectoris; Z79.82 Long term (current) use of aspirin; Z79.899 Other long term (current) drug therapy

== ENCOUNTER 2020-12-15 01:15 | Emergency (ER) | payer MEDICARE ==
[2020-12-15 01:23] VITALS: TEMP 97.8
[2020-12-15 01:49] VITALS: BP 121/74; PULSE 74
== END 2020-12-15 01:49 | disposition home or self-care (01) ==
LOC: COL.ER 01:15
DX: L29.9 Pruritus, unspecified (principal); I10 Essential (primary) hypertension; I25.10 Atherosclerotic heart disease of native coronary artery without angina pectoris; Z79.82 Long term (current) use of aspirin; Z79.899 Other long term (current) drug therapy

== ENCOUNTER 2020-12-25 22:43 | Emergency (ER) | payer MEDICARE ==
[~2020-12-25] VITALS: Ht 157.5 cm; Wt 55.5 kg
[2020-12-25 23:06] VITALS: TEMP 97.1
[2020-12-25 23:45] VITALS: BP 153/80; PULSE 87
== END 2020-12-25 23:45 | disposition home or self-care (01) ==
LOC: COL.ER 22:43
DX: Z71.1 Person with feared health complaint in whom no diagnosis is made (principal); I25.10 Atherosclerotic heart disease of native coronary artery without angina pectoris; I10 Essential (primary) hypertension; Z79.82 Long term (current) use of aspirin; Z79.899 Other long term (current) drug therapy

== ENCOUNTER 2020-12-30 05:16 | Emergency (ER) | payer MEDICARE ==
[~2020-12-30] VITALS: Ht 157.5 cm; Wt 55.5 kg
[2020-12-30 05:30] VITALS: TEMP 98.7
[2020-12-30 06:00] LABS: BASO % 0.4 % (0.0-2.0); EOS # 0.5 K/mm3 (0.0-0.7); GRAN # 5.5 K/mm3 (1.4-6.5); GRAN % 57.1 % (42.2-75.2); HEMATOCRIT 38.4 % (37.0-47.0); HEMOGLOBIN 12.3 g/dl (12.5-16.0); LYMPH # 2.4 K/mm3 (1.2-3.4); LYMPH % 24.7 % (20.0-51.0); MEAN CELL VOLUME 90 fl (80.0-100.0); MEAN CORPUSCULAR HEMOGLOBIN 29 pg (27.0-31.0); MEAN CORPUSCULAR HGB CONC 32 g/dl (33.0-37.0); MEAN PLATELET VOLUME 9.6 fl (7.4-10.4); MONO # 1.2 K/mm3 (0.1-0.6); MONO % 12.3 % (1.7-9.3); PLATELET COUNT 240 K/mm3 (130-400); RED BLOOD COUNT 4.25 M/mm3 (4.10-5.30); REDCELL DISTRIBUTION WIDTH-CV 13.2 % (11.5-14.5)
[2020-12-30 06:20] LABS: ALANINE AMINOTRANSFERASE 56 U/L (0-55); ALBUMIN 3.6 gm/dL (3.4-4.8); ALKALINE PHOSPHATASE 63 U/L (40-150); ANION GAP 11 mmol/L (7-16); AST,SGOT 39 U/L (5-34); BILIRUBIN,TOTAL 0.5 mg/dL (0.2-1.2); BLOOD UREA NITROGEN 19 mg/dL (10-20); CALCIUM 9.3 mg/dL (8.4-10.2); CARBON DIOXIDE 22 mmol/L (23-31); CHLORIDE 107 mmol/L (98-107); CREATININE, serum 0.88 mg/dL (0.57-1.11); GLUCOSE 88 mg/dL (70-99); POTASSIUM 4.2 mmol/L (3.5-4.5); SODIUM 140 mmol/L (136-145); TOTAL PROTEIN 7.5 gm/dL (6.2-8.1)
[2020-12-30 06:33] LABS: TROPONIN-I < 0.010 ng/mL (0.00-0.033)
[2020-12-30 07:04] VITALS: BP 119/78; PULSE 68
== END 2020-12-30 07:24 | disposition home or self-care (01) ==
LOC: COL.ER 05:16
PROVIDERS: Emergency Medicine
DX: R60.0 Localized edema (principal); I25.10 Atherosclerotic heart disease of native coronary artery without angina pectoris; I10 Essential (primary) hypertension; Z79.82 Long term (current) use of aspirin; Z79.899 Other long term (current) drug therapy

== ENCOUNTER 2021-01-04 01:27 | Inpatient (IN) | payer MEDICARE ==
[~2021-01-04] VITALS: Ht 157.5 cm; Wt 54.2 kg
[2021-01-04] VITALS (284 sets, daily range): BP systolic 108–149; BP diastolic 50–71; PULSE 52–141; TEMP 97.7–98.5; O2SAT 93–100
[2021-01-04 01:47] LABS: BASO # 0.1 K/mm3 (0.0-0.2); BASO % 0.5 % (0.0-2.0); EOS # 0.5 K/mm3 (0.0-0.7); EOS % 5.4 % (0-4.0); GRAN # 4.9 K/mm3 (1.4-6.5); HEMATOCRIT 37.8 % (37.0-47.0); HEMOGLOBIN 12.3 g/dl (12.5-16.0); LYMPH # 3.1 K/mm3 (1.2-3.4); LYMPH % 31.7 % (20.0-51.0); MEAN CELL VOLUME 90 fl (80.0-100.0); MEAN CORPUSCULAR HEMOGLOBIN 29 pg (27.0-31.0); MEAN CORPUSCULAR HGB CONC 33 g/dl (33.0-37.0); MEAN PLATELET VOLUME 9.8 fl (7.4-10.4); MONO # 1.2 K/mm3 (0.1-0.6); MONO % 11.9 % (1.7-9.3); PLATELET COUNT 241 K/mm3 (130-400); RED BLOOD COUNT 4.19 M/mm3 (4.10-5.30); REDCELL DISTRIBUTION WIDTH-CV 13.3 % (11.5-14.5)
[2021-01-04 02:11] LABS: ALBUMIN 3.7 gm/dL (3.4-4.8); BILIRUBIN,TOTAL 0.4 mg/dL (0.2-1.2); CALCIUM 9.4 mg/dL (8.4-10.2); CREATININE, serum 0.85 mg/dL (0.57-1.11); POTASSIUM 4.4 mmol/L (3.5-4.5)
[2021-01-04 02:27] LABS: TROPONIN-I 0.068 ng/mL (0.00-0.033)
[2021-01-04 02:36] LABS: TSH w REFLEX 3.077 uIU/mL (0.350-4.940)
[2021-01-04] MEDS ORDERED: PRINIVIL10 MG PO (03:30)
[2021-01-04] MEDS ORDERED: ILOTYCIN5 MG/GM OD (03:33)
[2021-01-04] MEDS ORDERED: VIGAMOX 0.5% 3 M3 ML OD (03:35)
--- NOTE | 2021-01-04 07:11 | NUR ---
Report received by JOSE Mast. Patient is up and in the bathroom. Call light and bedside table are within reach. Will continue to monitor patient throughout shift.
--- NOTE | 2021-01-04 07:30 | NUR ---
This nurse was called by ICU to inform her the patient was in SVT or AFIB sustained at 130-140s.
--- NOTE | 2021-01-04 08:00 | NUR ---
HUB BANDER called to say patient is feeling nausea and is requesting the crackers. This nurse informed the HUB BANDER she could proceed with giving the patient crackers. When this nurse came to check on patient she c/o feeling fluttering in her chest. Will continue to monitor patient throughout shift.
--- NOTE | 2021-01-04 08:21 | NUR ---
Called by [employer] about patient elevated heart rate. Spoke with Krista who is calling now.
--- NOTE | 2021-01-04 08:29 | NUR ---
This nurse called Dr. Vera to give him an update on the patient's current medical condition. Patient is sustained SVT or AFIB at 130s to 140s. Dr. Vera informed this nurse he would call her back.
--- NOTE | 2021-01-04 08:38 | NUR ---
spoke to Dr.Hurtig dasing patient. Faxed medical records at [facility] for recent records.
--- NOTE | 2021-01-04 09:17 | NUR ---
NORMA MADE BY PHARMACY. SPOKE TO SUPERVISOR FACEPIECE LINE ABOUT INITIATION OF DRIP, SHE IS ASSISTING TO GET HOSPITAL POLICY
--- NOTE | 2021-01-04 10:00 | NUR ---
This nurse was instructed by the assembler deck and hull to hold off on giving the cardizem until he talks with the hospitalist about transferring patient to ICU. THis nurse called ICU to let her know what was going on when she informed me to call warehouse representative who informed me she would not be able to take the patient until a bed in ICU opens up. This nurse is standing by for further instructions.
--- NOTE | 2021-01-04 12:44 | NUR ---
Safety Instructor offered prayer and support with patient.
--- NOTE | 2021-01-04 14:30 | NUR ---
PATIENT ARRIVES TO ICU. VS TAKEN. HR 60s. NO COMPLAINTS AT THIS TIME. SHE IS STEADY ON HER FEET AND ON ROOM AIR. WILL CALL DR. SCHULTE TO CLARIFY ESMOLOL GTT ORDERS.
--- NOTE | 2021-01-04 14:52 | NUR ---
SPOKE WITH DR. SCHULTE ABOUT ESMOLOL AND PATIENT'S CONCERNS WITH RECEIVING MEDICATIONS THAT MAY "CAUSE HER HEART TO STOP" PER WHAT DR. ROMO HAD TALK TO HER ABOUT IN THE PAST. DR. SCHULTE AND I HAVE EXTENSIVE CONVERSATION ABOUT THIS. HE GIVES VERY CLEAR PARAMETERS ON WHEN TO START THE GTT AND WHEN TO STOP THE GTT. HE STATES THAT SHE WILL BE OK SINCE THE HALF-LIFE IS VERY SHORT AND SHE IS UNDER CLOSER MONITORING IN THE ICU. THIS PLAN IS COMMUNICATED TO THE PATIENT AND SHE IS OK WITH IT. SHE ALSO STATES THAT SHE CONTACTED DR. ROMO AND ASKED HIM TO CALL DR. SCHULTE TO DISCUSS HER CASE SINCE HE IS HER PRIMARY THREAD GRINDER TOOL.
--- NOTE | 2021-01-04 15:28 | NUR ---
DR. SCHULTE CALLS STATING THAT HE HAS SPOKEN WITH DR. ROMO ABOUT THE PLAN OF CARE AND THEY ARE BOTH IN AGREEMENT TO USE ESMOLOL IF HER HEART RATE BECOMES HIGHER THAN 90 CONSISTENTLY. ADDITIONAL NURSING ORDER PLACED TO REFLECT EXACT INSTRUCTIONS ON WHEN TO START AND STOP THE GTT.
[2021-01-05] VITALS (500 sets, daily range): BP systolic 91–117; BP diastolic 45–79; PULSE 48–61; TEMP 97.8–98.6; O2SAT 64–100
[2021-01-05 05:08] LABS: BASO # 0.1 K/mm3 (0.0-0.2); BASO % 0.6 % (0.0-2.0); EOS # 0.4 K/mm3 (0.0-0.7); EOS % 4.8 % (0-4.0); GRAN # 4.5 K/mm3 (1.4-6.5); GRAN % 50.1 % (42.2-75.2); HEMATOCRIT 40.5 % (37.0-47.0); LYMPH # 2.9 K/mm3 (1.2-3.4); MEAN CELL VOLUME 92 fl (80.0-100.0); MEAN CORPUSCULAR HEMOGLOBIN 30 pg (27.0-31.0); MEAN CORPUSCULAR HGB CONC 32 g/dl (33.0-37.0); MEAN PLATELET VOLUME 9.9 fl (7.4-10.4); MONO # 1.1 K/mm3 (0.1-0.6); MONO % 12.1 % (1.7-9.3); PLATELET COUNT 253 K/mm3 (130-400); REDCELL DISTRIBUTION WIDTH-CV 13.4 % (11.5-14.5)
[2021-01-05 05:29] LABS: CALCIUM 9.2 mg/dL (8.4-10.2); CREATININE, serum 0.84 mg/dL (0.57-1.11); MAGNESIUM 2.1 mg/dL (1.6-2.6); POTASSIUM 4.4 mmol/L (3.5-4.5)
--- NOTE | 2021-01-05 09:00 | NUR ---
PATIENT DOING WELL THIS MORNING. SHE IS UP AND INDEPENDENT IN THE ROOM WITHOUT ISSUE. SHE HAS BEEN IN A SINUS LYLA, REGULAR RHYTHM WITH NO EVIDENCE OF ARRHYTHMIA SINCE ARRIVAL TO ICU.
--- NOTE | 2021-01-05 11:40 | NUR ---
DR. SCHULTE ROUNDS AT THIS TIME. RECOMMENDING TRANSFER TO MEDICAL FLOOR AND REMAIN ON TELEMETRY MONITORING.
--- NOTE | 2021-01-05 17:00 | NUR ---
PATIENT TRANSFERED TO ROOM 357. JOSE MCKOY GIVEN REPORT PRIOR TO ARRIVAL.
--- NOTE | 2021-01-05 17:53 | NUR ---
Patient arrived to the floor at approx. 1715. Patient is A&Ox4 and independent. Patient does not have any complaints/concerns at this time. Patient already had supper while still in the ICU.
[2021-01-06 00:41] VITALS: BP 122/62; PULSE 62; TEMP 97.6
[2021-01-06 03:40] VITALS: BP 95/50; PULSE 63; TEMP 97.9
[2021-01-06 08:08] VITALS: BP 101/62; PULSE 60; TEMP 98.4
--- NOTE | 2021-01-06 10:29 | NUR ---
PT ALERT AND ORIENTED. PT HAS CLEAR LUNGS TO AUSCULTATION. PT S1,S2 SOUNDS AUSCULTATED. PT DENIES PAIN AT THIS TIME. PT ABLE TO CNOVERSE FREELY. 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 PT BLOOD PRESSURE SOFT, HELD BLOOD PRESSURE MEDICATION PER ORDER PARAMETERS. PT CALL LIGHT WITHIN REACH, NO OTHER NEEDS AT THIS TIME.
[2021-01-06 12:25] VITALS: BP 112/59; PULSE 59; TEMP 98.9
--- NOTE | 2021-01-06 13:00 | NUR ---
NOTIFIED DR. ROMO OF PT QUESTIONS WITH MEDICATIONS, RECEIVED VERBAL ORDERS FOR MEDICATONS CHANGES. NOTIFIED DR. ROSAS OF CHANGE IN MEDICATIONS PRIOR TO DISCHARGE.
--- NOTE | 2021-01-06 13:03 | NUR ---
family caseworker met with patient to discuss discharge plan. Patient states that she lives at home alone here in [facility]. Patient reports that her about 2 years ago and she lost everything to probate. Patient reports that she is independent with her ADL's and does not utilize any DME to assist with mobility. Patient reports that she bikes about 5-10 miles per day. Patient also reports no O2 needs. PCP is Dr. Iraheta and her pmo business analyst is . Utilizes [facility] for perscription needs. Currently reports to no issues affording medications. Patient reports that she does not have a DPOA-HC established as of yet, but intends on meeting with her contracts attorney to establish one along with her finances. Patient has 8 kids in total. Her daughter Marija ([phone]) is the closest here in [facility]. Patient reports that her daughter Marissa ([phone]) is the best contact through due to her having the most medical knowledge, however she lives in [place]. Discharge plan: Home
--- NOTE | 2021-01-06 14:18 | NUR ---
PT DISCHARGING. PT INT DISCONTINUED. HEALTH SUMMARY AND EDUCATION GIVEN TO BEST OF ABILITY. PT VERBALIZED UNDERSTANDING. PT ACCOMPANIED BY [facility] STAFF AND WHEEL CHAIR UTILIZED.
--- NOTE | 2021-01-06 14:38 | NUR ---
Initial visit; Patient thanked Manager Ent for visiting her before she was discharged and offering God's blessings. She was so happy to have a visit from our other Manager Ent as well and stated her visit here has been very good.
== END 2021-01-06 14:18 | disposition home or self-care (01) | DRG 309 ==
LOC: COL.ER 01:27 → SURG 02:36 → MEDICAL 09:01 → SURG 09:01 → ICU 15:37 → MEDICAL 01-05 17:48
PROVIDERS: Physician Assistant; ADMIT Internal Medicine
DX: I47.1 Supraventricular tachycardia (principal); I50.22 Chronic systolic (congestive) heart failure; I25.5 Ischemic cardiomyopathy; I25.10 Atherosclerotic heart disease of native coronary artery without angina pectoris; I11.0 Hypertensive heart disease with heart failure; L29.9 Pruritus, unspecified; I44.7 Left bundle-branch block, unspecified; H10.89 Other conjunctivitis; N63.0 Unspecified lump in unspecified breast; I95.9 Hypotension, unspecified; I25.2 Old myocardial infarction; Z86.718 Personal history of other venous thrombosis and embolism; Z88.0 Allergy status to penicillin; Z79.82 Long term (current) use of aspirin
CPT/HCPCS: 99223-AI; 99232-AI; J1650; J7040

== ENCOUNTER 2021-09-21 11:51 | Emergency (ER) | payer MEDICARE ==
[~2021-09-21] VITALS: Ht 157.5 cm; Wt 57.7 kg
[~2021-09-21 11:51] MED LIST changes: +ILOTYCIN5 MG/GM OD; +PRINIVIL10 MG PO; +VIGAMOX 0.5% 3 M3 ML OD
[2021-09-21 12:00] VITALS: TEMP 98.2
[2021-09-21 12:34] LABS: BASO # 0.1 K/mm3 (0.0-0.2); BASO % 0.6 % (0.0-2.0); EOS # 0.1 K/mm3 (0.0-0.7); EOS % 1.1 % (0.0-4.0); GRAN # 4.8 K/mm3 (1.4-6.5); GRAN % 55.4 % (42.2-75.2); HEMATOCRIT 40.9 % (37.0-47.0); HEMOGLOBIN 13.5 g/dl (12.5-16.0); LYMPH # 2.9 K/mm3 (1.2-3.4); LYMPH % 32.6 % (20.0-51.0); MEAN CELL VOLUME 89 fl (80.0-100.0); MEAN CORPUSCULAR HEMOGLOBIN 30 pg (27-31); MEAN CORPUSCULAR HGB CONC 33 g/dl (33.0-37.0); MEAN PLATELET VOLUME 9.9 fl (7.4-10.4); MONO # 0.9 K/mm3 (0.1-0.6); PLATELET COUNT 189 K/mm3 (130-400); RED BLOOD COUNT 4.58 M/mm3 (4.10-5.30); REDCELL DISTRIBUTION WIDTH-CV 13.8 % (11.5-14.5)
[2021-09-21 12:42] LABS: PROTHROMBIN TIME 11.5 SECONDS (9.7-12.8)
[2021-09-21 12:44] LABS: PARTIAL THROMBOPLASTIN TIME 35.2 SECONDS (26.0-37.0)
[2021-09-21 12:51] LABS: ALANINE AMINOTRANSFERASE 17 U/L (0-55); ALKALINE PHOSPHATASE 66 U/L (40-150); ANION GAP 11 mmol/L (7-16); AST,SGOT 24 U/L (5-34); BILIRUBIN,TOTAL 0.6 mg/dL (0.2-1.2); BLOOD UREA NITROGEN 18 mg/dL (10-20); CALCIUM 9.4 mg/dL (8.4-10.2); CARBON DIOXIDE 19 mmol/L (23-31); CHLORIDE 111 mmol/L (98-107); CREATININE, serum 0.81 mg/dL (0.57-1.11); GLUCOSE 86 mg/dL (70-99); POTASSIUM 4.5 mmol/L (3.5-4.5); SODIUM 141 mmol/L (136-145); TOTAL PROTEIN 7.6 gm/dL (6.2-8.1)
[2021-09-21] MEDS ORDERED: JARDIANCE10 ×2 (12:53)
[2021-09-21 12:58] LABS: TROPONIN-I < 0.010 ng/mL (0.00-0.033)
[2021-09-21 13:31] VITALS: BP 117/83; PULSE 60
== END 2021-09-21 13:40 | disposition home or self-care (01) ==
LOC: COL.ER 11:51
PROVIDERS: Emergency Medicine
DX: R06.09 Other forms of dyspnea (principal); Z20.822 Contact with and (suspected) exposure to COVID-19

== ENCOUNTER 2021-10-04 02:07 | Emergency (ER) | payer MEDICARE ==
[~2021-10-04] VITALS: Ht 157.5 cm; Wt 55.9 kg
[~2021-10-04 02:07] MED LIST changes: +JARDIANCE10
[2021-10-04 02:12] VITALS: TEMP 97.7
[2021-10-04 03:28] LABS: BASO # 0.1 K/mm3 (0.0-0.2); BASO % 0.7 % (0.0-2.0); EOS # 0.3 K/mm3 (0.0-0.7); EOS % 2.9 % (0.0-4.0); GRAN # 4.3 K/mm3 (1.4-6.5); GRAN % 48.8 % (42.2-75.2); HEMATOCRIT 39.1 % (37.0-47.0); HEMOGLOBIN 12.7 g/dl (12.5-16.0); LYMPH # 2.9 K/mm3 (1.2-3.4); LYMPH % 33.2 % (20.0-51.0); MEAN CELL VOLUME 90 fl (80.0-100.0); MEAN CORPUSCULAR HEMOGLOBIN 29 pg (27-31); MEAN CORPUSCULAR HGB CONC 33 g/dl (33.0-37.0); MEAN PLATELET VOLUME 9.7 fl (7.4-10.4); MONO # 1.2 K/mm3 (0.1-0.6); MONO % 13.9 % (1.7-9.3); PLATELET COUNT 202 K/mm3 (130-400); RED BLOOD COUNT 4.34 M/mm3 (4.10-5.30); REDCELL DISTRIBUTION WIDTH-CV 13.6 % (11.5-14.5)
[2021-10-04 03:35] LABS: ALBUMIN 3.7 gm/dL (3.4-4.8); BILIRUBIN,TOTAL 0.4 mg/dL (0.2-1.2); CALCIUM 9.2 mg/dL (8.4-10.2); CREATININE, serum 0.88 mg/dL (0.57-1.11); POTASSIUM 4.5 mmol/L (3.5-4.5); TOTAL PROTEIN 7.3 gm/dL (6.2-8.1)
[2021-10-04 03:41] LABS: TROPONIN-I 0.031 ng/mL (0.00-0.033)
[2021-10-04 06:48] VITALS: BP 133/86; PULSE 60
== END 2021-10-04 06:51 | disposition home or self-care (01) ==
LOC: COL.ER 02:07
PROVIDERS: Emergency Medicine
DX: R14.0 Abdominal distension (gaseous) (principal); R10.13 Epigastric pain

== ENCOUNTER 2021-10-08 03:35 | Emergency (ER) | payer MEDICARE ==
[~2021-10-08] VITALS: Ht 157.5 cm; Wt 55.9 kg
[2021-10-08 03:41] VITALS: TEMP 98.2
[2021-10-08 03:51] LABS: BASO # 0.1 K/mm3 (0.0-0.2); BASO % 0.5 % (0.0-2.0); EOS # 0.1 K/mm3 (0.0-0.7); EOS % 1.4 % (0.0-4.0); GRAN # 5.5 K/mm3 (1.4-6.5); GRAN % 58.1 % (42.2-75.2); HEMATOCRIT 38.3 % (37.0-47.0); HEMOGLOBIN 12.4 g/dl (12.5-16.0); LYMPH # 2.7 K/mm3 (1.2-3.4); LYMPH % 28.3 % (20.0-51.0); MEAN CELL VOLUME 91 fl (80.0-100.0); MEAN CORPUSCULAR HEMOGLOBIN 30 pg (27-31); MEAN CORPUSCULAR HGB CONC 32 g/dl (33.0-37.0); MEAN PLATELET VOLUME 9.6 fl (7.4-10.4); MONO # 1.1 K/mm3 (0.1-0.6); MONO % 11.5 % (1.7-9.3); PLATELET COUNT 214 K/mm3 (130-400); RED BLOOD COUNT 4.21 M/mm3 (4.10-5.30); REDCELL DISTRIBUTION WIDTH-CV 13.7 % (11.5-14.5)
[2021-10-08 03:59] LABS: PROTHROMBIN TIME 11.6 SECONDS (9.7-12.8)
[2021-10-08 04:02] LABS: PARTIAL THROMBOPLASTIN TIME 35.4 SECONDS (26.0-37.0)
[2021-10-08 04:07] LABS: ALANINE AMINOTRANSFERASE 20 U/L (0-55); ALKALINE PHOSPHATASE 62 U/L (40-150); ANION GAP 11 mmol/L (7-16); AST,SGOT 28 U/L (5-34); BILIRUBIN,TOTAL 0.7 mg/dL (0.2-1.2); BLOOD UREA NITROGEN 31 mg/dL (10-20); CARBON DIOXIDE 20 mmol/L (23-31); CHLORIDE 109 mmol/L (98-107); CREATININE, serum 1.12 mg/dL (0.57-1.11); GLUCOSE 99 mg/dL (70-99); POTASSIUM 4.1 mmol/L (3.5-4.5); SODIUM 140 mmol/L (136-145); TOTAL PROTEIN 7.4 gm/dL (6.2-8.1)
[2021-10-08 04:14] LABS: TROPONIN-I < 0.010 ng/mL (0.00-0.033)
[2021-10-08 04:24] VITALS: BP 127/72; PULSE 60
== END 2021-10-08 04:34 | disposition home or self-care (01) ==
LOC: COL.ER 03:35
PROVIDERS: Emergency Medicine
DX: R06.00 Dyspnea, unspecified (principal)

== ENCOUNTER 2021-10-11 01:10 | Emergency (ER) | payer MEDICARE ==
[~2021-10-11] VITALS: Ht 157.5 cm; Wt 55.9 kg
[2021-10-11 01:27] VITALS: TEMP 97.6
[2021-10-11 01:51] LABS: BASO # 0.1 K/mm3 (0.0-0.2); BASO % 0.7 % (0.0-2.0); EOS # 0.1 K/mm3 (0.0-0.7); EOS % 1.7 % (0.0-4.0); GRAN # 3.7 K/mm3 (1.4-6.5); GRAN % 48.2 % (42.2-75.2); HEMOGLOBIN 12.1 g/dl (12.5-16.0); LYMPH # 2.7 K/mm3 (1.2-3.4); LYMPH % 35.6 % (20.0-51.0); MEAN CELL VOLUME 91 fl (80.0-100.0); MEAN CORPUSCULAR HEMOGLOBIN 30 pg (27-31); MEAN CORPUSCULAR HGB CONC 33 g/dl (33.0-37.0); MEAN PLATELET VOLUME 9.7 fl (7.4-10.4); MONO % 13.4 % (1.7-9.3); PLATELET COUNT 205 K/mm3 (130-400); RED BLOOD COUNT 4.02 M/mm3 (4.10-5.30); REDCELL DISTRIBUTION WIDTH-CV 13.6 % (11.5-14.5)
[2021-10-11 01:54] LABS: HEMATOCRIT 36.7 % (37.0-47.0)
[2021-10-11 02:00] LABS: ALANINE AMINOTRANSFERASE 25 U/L (0-55); ALBUMIN 3.7 gm/dL (3.4-4.8); ALKALINE PHOSPHATASE 58 U/L (40-150); ANION GAP 10 mmol/L (7-16); AST,SGOT 34 U/L (5-34); BILIRUBIN,TOTAL 0.2 mg/dL (0.2-1.2); BLOOD UREA NITROGEN 27 mg/dL (10-20); CALCIUM 8.8 mg/dL (8.4-10.2); CARBON DIOXIDE 19 mmol/L (23-31); CHLORIDE 111 mmol/L (98-107); CREATININE, serum 0.92 mg/dL (0.57-1.11); GLUCOSE 99 mg/dL (70-99); POTASSIUM 3.8 mmol/L (3.5-4.5); SODIUM 140 mmol/L (136-145)
[2021-10-11 02:06] LABS: TROPONIN-I < 0.010 ng/mL (0.00-0.033)
[2021-10-11 02:07] LABS: INR 1.1 (0.8-3.0); PROTHROMBIN TIME 12.1 SECONDS (9.7-12.8)
[2021-10-11 02:26] VITALS: BP 128/80; PULSE 65
[2021-10-12] MEDS ORDERED: PRINIVIL10 MG PO (12:44)
== END 2021-10-11 02:26 | disposition home or self-care (01) ==
LOC: COL.ER 01:10
PROVIDERS: Physician Assistant
DX: R07.9 Chest pain, unspecified (principal); Z95.5 Presence of coronary angioplasty implant and graft; Z95.0 Presence of cardiac pacemaker; Z79.82 Long term (current) use of aspirin
CPT/HCPCS: J7030

== ENCOUNTER 2021-10-12 08:28 | Observation (INO) | payer MEDICARE ==
[~2021-10-12] VITALS: Ht 157.5 cm; Wt 55.9 kg
[2021-10-12 09:22] LABS: BASO # 0.1 K/mm3 (0.0-0.2); BASO % 0.7 % (0.0-2.0); EOS # 0.1 K/mm3 (0.0-0.7); EOS % 1.1 % (0.0-4.0); GRAN # 4.2 K/mm3 (1.4-6.5); GRAN % 56.4 % (42.2-75.2); HEMOGLOBIN 12.7 g/dl (12.5-16.0); LYMPH # 2.2 K/mm3 (1.2-3.4); LYMPH % 30.4 % (20.0-51.0); MEAN CELL VOLUME 92 fl (80.0-100.0); MEAN CORPUSCULAR HEMOGLOBIN 30 pg (27-31); MEAN CORPUSCULAR HGB CONC 33 g/dl (33.0-37.0); MEAN PLATELET VOLUME 9.9 fl (7.4-10.4); MONO # 0.8 K/mm3 (0.1-0.6); MONO % 11.1 % (1.7-9.3); PLATELET COUNT 211 K/mm3 (130-400); RED BLOOD COUNT 4.24 M/mm3 (4.10-5.30); REDCELL DISTRIBUTION WIDTH-CV 13.6 % (11.5-14.5)
[2021-10-12 09:36] LABS: ALBUMIN 3.9 gm/dL (3.4-4.8); CALCIUM 9.1 mg/dL (8.4-10.2); CREATININE, serum 0.86 mg/dL (0.57-1.11); PHOSPHOROUS 3.7 mg/dL (2.3-4.7); POTASSIUM 3.8 mmol/L (3.5-4.5)
[2021-10-12 12:00] VITALS: BP 146/71; PULSE 65; TEMP 97.7
[2021-10-12] MEDS ORDERED: PRINIVIL10 MG PO (12:44)
--- NOTE | 2021-10-12 14:36 | NUR ---
PT ADMITTED TO UNIT. ADMISSION INTAKE AND ASSESSMENT COMPLETED. MED REC UPDATED. PT ORIENTED TO UNIT. PT FEELS SHE IS BACK TO HER BASELINE AT THIS TIME. NO OTHER CONCERNS OR NEEDS. WILL CONTINUE TO MONITOR.
[2021-10-12 15:34] VITALS: BP 122/64; PULSE 67; TEMP 97.9
[2021-10-12 20:16] VITALS: BP 120/57; PULSE 63; TEMP 98.4
--- NOTE | 2021-10-12 20:50 | NUR ---
Pt pleasantly sitting down close to the window. A&O x4. VSS. Pt denies any needs or concerns at the time. No pain or disconfort were notified. She requested to have a shower before going to bed. Call light within reach.
[2021-10-13 00:05] VITALS: BP 103/55; PULSE 50; TEMP 98.5
--- NOTE | 2021-10-13 05:41 | NUR ---
Pt was up most of the night. She requested to have a second shower, walked in her room. Did a few crossword activities. She states that she started Jardiance 8 days ago and she can't have a good sleep since then. She reports never having experienced insomnia. Call light within reach.
[2021-10-13 06:06] VITALS: BP 110/60; PULSE 59; TEMP 98.4
[2021-10-13 07:51] VITALS: BP 124/58; PULSE 60; TEMP 98.2
--- NOTE | 2021-10-13 08:12 | NUR ---
PT AMBULATING AROUND ROOM. MORNING MEDICATIONS GIVEN. SHIFT ASSESSMENT COMPLETED. PT DENIES ANY EPISODES OF WEAKNESS, DIZZINESS, OR BLURRED VISION OVERNIGHT. PT BELIEVES SHE IS BACK TO HER BASELINE. UPDATED ON POC. WILL CONTINUE TO MONITOR.
[2021-10-13] MEDS ORDERED: PLAVIX 75MG TAB75 MG PO (09:12)
[2021-10-13] MEDS ORDERED: PRAVACHOL10 MG PO (09:13)
--- NOTE | 2021-10-13 11:48 | NUR ---
DISCHARGE INSTRUCTIONS GIVEN. IV D/C. TELE D/C. ALL QUESTIONS ANSWERED.
== END 2021-10-13 11:49 | disposition home or self-care (01) ==
LOC: COL.ER 08:28 → MEDICAL 12:17
PROVIDERS: Emergency Medicine; ADMIT Internal Medicine
DX: G45.9 Transient cerebral ischemic attack, unspecified (principal); I25.10 Atherosclerotic heart disease of native coronary artery without angina pectoris; I25.2 Old myocardial infarction; I47.1 Supraventricular tachycardia; I42.9 Cardiomyopathy, unspecified; Z86.16 Personal history of COVID-19; Z79.82 Long term (current) use of aspirin; Z95.5 Presence of coronary angioplasty implant and graft; Z95.810 Presence of automatic (implantable) cardiac defibrillator
CPT/HCPCS: G0378; J1650; J2920; J7030; Q9967

== ENCOUNTER 2021-10-14 18:58 | Emergency (ER) | payer MEDICARE ==
[~2021-10-14] VITALS: Ht 157.5 cm; Wt 55.9 kg
[~2021-10-14 18:58] MED LIST changes: +PRAVACHOL10 MG PO
[2021-10-14 19:07] VITALS: TEMP 97.9
[2021-10-14 20:27] LABS: BASO % 0.3 % (0.0-2.0); EOS # 0.1 K/mm3 (0.0-0.7); EOS % 0.9 % (0.0-4.0); GRAN # 6.5 K/mm3 (1.4-6.5); HEMOGLOBIN 11.1 g/dl (12.5-16.0); LYMPH # 2.6 K/mm3 (1.2-3.4); LYMPH % 24.7 % (20.0-51.0); MEAN CELL VOLUME 95 fl (80.0-100.0); MEAN CORPUSCULAR HEMOGLOBIN 30 pg (27-31); MEAN CORPUSCULAR HGB CONC 32 g/dl (33.0-37.0); MEAN PLATELET VOLUME 9.8 fl (7.4-10.4); MONO # 1.2 K/mm3 (0.1-0.6); MONO % 11.7 % (1.7-9.3); PLATELET COUNT 218 K/mm3 (130-400); RED BLOOD COUNT 3.69 M/mm3 (4.10-5.30); REDCELL DISTRIBUTION WIDTH-CV 13.9 % (11.5-14.5)
[2021-10-14 20:28] LABS: HEMATOCRIT 34.9 % (37.0-47.0)
[2021-10-14 20:41] LABS: PROTHROMBIN TIME 11.9 SECONDS (9.7-12.8)
[2021-10-14 20:43] LABS: ALBUMIN 3.4 gm/dL (3.4-4.8); BILIRUBIN,TOTAL 0.5 mg/dL (0.2-1.2); CALCIUM 8.7 mg/dL (8.4-10.2); CREATININE, serum 0.85 mg/dL (0.57-1.11); POTASSIUM 3.8 mmol/L (3.5-4.5); TOTAL PROTEIN 6.4 gm/dL (6.2-8.1)
[2021-10-14 21:02] VITALS: BP 138/79; PULSE 60
== END 2021-10-14 21:02 | disposition home or self-care (01) ==
LOC: COL.ER 18:58
PROVIDERS: Family Medicine
DX: K62.5 Hemorrhage of anus and rectum (principal); I25.10 Atherosclerotic heart disease of native coronary artery without angina pectoris; I25.2 Old myocardial infarction; Z86.718 Personal history of other venous thrombosis and embolism; Z79.01 Long term (current) use of anticoagulants

== ENCOUNTER 2021-10-16 02:41 | Emergency (ER) | payer MEDICARE ==
[~2021-10-16] VITALS: Ht 157.5 cm; Wt 55.9 kg
[2021-10-16] MEDS ORDERED: PREDNISONE20 MG PO (03:01)
[2021-10-16] MEDS ORDERED: ULTRAM 50MG TAB50 MG PO (03:01)
[2021-10-16 03:17] VITALS: BP 132/91; PULSE 71; TEMP 98
== END 2021-10-16 03:10 | disposition home or self-care (01) ==
LOC: COL.ER 02:41
DX: M25.562 Pain in left knee (principal); G89.29 Other chronic pain; Z98.890 Other specified postprocedural states
CPT/HCPCS: J7512

== ENCOUNTER 2021-10-18 01:14 | Emergency (ER) | payer MEDICARE ==
[~2021-10-18] VITALS: Ht 157.5 cm; Wt 54.5 kg
[2021-10-18 01:16] VITALS: BP 153/95; PULSE 75; TEMP 97.1
== END 2021-10-18 01:35 | disposition home or self-care (01) ==
LOC: COL.ER 01:14
DX: M25.562 Pain in left knee (principal); M25.561 Pain in right knee; G89.29 Other chronic pain; Z96.652 Presence of left artificial knee joint
CPT/HCPCS: J7512

== ENCOUNTER 2021-10-23 00:42 | Emergency (ER) | payer MEDICARE ==
[~2021-10-23] VITALS: Ht 165.1 cm; Wt 61.4 kg
[2021-10-23 00:46] VITALS: TEMP 97.2
[2021-10-23 01:24] VITALS: BP 124/78; PULSE 76
== END 2021-10-23 01:24 | disposition home or self-care (01) ==
LOC: COL.ER 00:42
DX: R46.89 Other symptoms and signs involving appearance and behavior (principal); Z60.9 Problem related to social environment, unspecified

== ENCOUNTER 2021-10-26 04:55 | Emergency (ER) | payer MEDICARE ==
[~2021-10-26] VITALS: Ht 157.5 cm; Wt 57.3 kg
[2021-10-26 04:59] VITALS: TEMP 97.4
[2021-10-26 06:08] LABS: CALCIUM 9.1 mg/dL (8.4-10.2); CREATININE, serum 0.95 mg/dL (0.57-1.11); POTASSIUM 3.4 mmol/L (3.5-4.5)
[2021-10-26 06:29] VITALS: BP 126/77; PULSE 66
== END 2021-10-26 06:44 | disposition home or self-care (01) ==
LOC: COL.ER 04:55
PROVIDERS: Emergency Medicine
DX: R42 Dizziness and giddiness (principal); E87.6 Hypokalemia; Z28.310 Unvaccinated for COVID-19

== ENCOUNTER 2021-10-30 06:09 | Emergency (ER) | payer MEDICARE ==
[~2021-10-30] VITALS: Ht 157.5 cm; Wt 55.9 kg
[2021-10-30 06:23] VITALS: TEMP 97.9
[2021-10-30 07:05] VITALS: BP 128/71; PULSE 62
== END 2021-10-30 07:05 | disposition home or self-care (01) ==
LOC: COL.ER 06:09
DX: R06.02 Shortness of breath (principal)

== ENCOUNTER 2021-10-31 02:58 | Emergency (ER) | payer MEDICARE ==
[~2021-10-31] VITALS: Ht 157.5 cm; Wt 55.9 kg
[2021-10-31 04:29] VITALS: BP 132/86; PULSE 64; TEMP 98.1
== END 2021-10-31 04:29 | disposition home or self-care (01) ==
LOC: COL.ER 02:58
DX: S50.911A Unspecified superficial injury of right forearm, initial encounter (principal); E11.9 Type 2 diabetes mellitus without complications; Z79.4 Long term (current) use of insulin; W26.9XXS Contact with unspecified sharp object(s), sequela

== ENCOUNTER 2021-11-07 22:18 | Emergency (ER) | payer MEDICARE ==
[~2021-11-07] VITALS: Ht 157.5 cm; Wt 55.9 kg
[2021-11-07 22:24] VITALS: TEMP 98.2
[2021-11-07 23:59] LABS: BASO % 0.3 % (0.0-2.0); EOS # 0.2 K/mm3 (0.0-0.7); EOS % 2.3 % (0.0-4.0); GRAN % 50.7 % (42.2-75.2); HEMOGLOBIN 11.7 g/dl (12.5-16.0); LYMPH # 2.7 K/mm3 (1.2-3.4); LYMPH % 34.8 % (20.0-51.0); MEAN CELL VOLUME 91 fl (80.0-100.0); MEAN CORPUSCULAR HEMOGLOBIN 30 pg (27-31); MEAN CORPUSCULAR HGB CONC 33 g/dl (33.0-37.0); MEAN PLATELET VOLUME 9.6 fl (7.4-10.4); MONO # 0.9 K/mm3 (0.1-0.6); MONO % 11.6 % (1.7-9.3); PLATELET COUNT 204 K/mm3 (130-400); RED BLOOD COUNT 3.89 M/mm3 (4.10-5.30)
[2021-11-08 00:14] LABS: ALBUMIN 3.4 gm/dL (3.4-4.8); BILIRUBIN,TOTAL 0.6 mg/dL (0.2-1.2); CALCIUM 9.1 mg/dL (8.4-10.2); CREATININE, serum 0.78 mg/dL (0.57-1.11); HEMATOCRIT 35.4 % (37.0-47.0); POTASSIUM 3.2 mmol/L (3.5-4.5); TOTAL PROTEIN 6.4 gm/dL (6.2-8.1)
[2021-11-08 00:19] LABS: TROPONIN-I 0.018 ng/mL (0.00-0.033)
[2021-11-08 00:56] VITALS: BP 141/85; PULSE 71
== END 2021-11-08 00:57 | disposition home or self-care (01) ==
LOC: COL.ER 22:18
PROVIDERS: Emergency Medicine
DX: R42 Dizziness and giddiness (principal); E11.9 Type 2 diabetes mellitus without complications; Z79.4 Long term (current) use of insulin

== ENCOUNTER 2022-04-03 21:00 | Emergency (ER) | payer MEDICARE ==
[~2022-04-03] VITALS: Ht 157.5 cm; Wt 57.7 kg
[~2022-04-03 21:00] MED LIST changes: +CORDARONE200 MG/TAB PO; +ELIQUIS 2.5 PO; +PRAVACHOL 20MG20 MG PO; +XARELTO2.5 MG PO
[2022-04-03 21:09] VITALS: TEMP 98.4
[2022-04-03 22:02] VITALS: BP 114/72; PULSE 72
== END 2022-04-03 21:45 | disposition home or self-care (01) ==
LOC: COL.ER 21:00
DX: S80.02XA Contusion of left knee, initial encounter (principal); I48.91 Unspecified atrial fibrillation; Z79.01 Long term (current) use of anticoagulants; Z28.310 Unvaccinated for COVID-19; X58.XXXA Exposure to other specified factors, initial encounter

== ENCOUNTER 2022-04-05 10:32 | Emergency (ER) | payer MEDICARE ==
[~2022-04-05] VITALS: Ht 157.5 cm; Wt 54.5 kg
[2022-04-05 10:41] VITALS: BP 120/72; TEMP 97.7
[2022-04-05] MEDS ORDERED: DOXYCYCLINE 10100 MG PO (11:17)
[2022-04-05 11:28] VITALS: PULSE 71
== END 2022-04-05 11:28 | disposition home or self-care (01) ==
LOC: COL.ER 10:32
DX: J01.90 Acute sinusitis, unspecified (principal); B96.89 Other specified bacterial agents as the cause of diseases classified elsewhere; Z88.0 Allergy status to penicillin; Z88.1 Allergy status to other antibiotic agents

== ENCOUNTER → 2022-04-06 | Outpatient (CLI) | payer MEDICARE ==
[~2022-04-06] MED LIST changes: +DOXYCYCLINE 10100 MG PO
== END ==
LOC: COL.VAS 06:22
DX: Z13.89 Encounter for screening for other disorder (principal); M79.602 Pain in left arm

== ENCOUNTER 2022-04-29 05:14 | Emergency (ER) | payer MEDICARE ==
[~2022-04-29] VITALS: Ht 157.5 cm; Wt 59.1 kg
[2022-04-29 05:15] VITALS: TEMP 98.2
[2022-04-29 05:47] LABS: BASO % 0.5 % (0.0-2.0); EOS # 0.3 K/mm3 (0.0-0.7); EOS % 3.4 % (0.0-4.0); GRAN # 4.3 K/mm3 (1.4-6.5); HEMATOCRIT 41.1 % (37.0-47.0); HEMOGLOBIN 13.6 g/dl (12.5-16.0); LYMPH # 1.9 K/mm3 (1.2-3.4); LYMPH % 25.4 % (20.0-51.0); MEAN CELL VOLUME 90 fl (80.0-100.0); MEAN CORPUSCULAR HEMOGLOBIN 30 pg (27-31); MEAN CORPUSCULAR HGB CONC 33 g/dl (33.0-37.0); MEAN PLATELET VOLUME 9.7 fl (7.4-10.4); MONO # 0.8 K/mm3 (0.1-0.6); MONO % 11.4 % (1.7-9.3); PLATELET COUNT 206 K/mm3 (130-400); RED BLOOD COUNT 4.55 M/mm3 (4.10-5.30); REDCELL DISTRIBUTION WIDTH-CV 13.5 % (11.5-14.5)
[2022-04-29 05:55] LABS: PROTHROMBIN TIME 11.9 SECONDS (9.7-12.8)
[2022-04-29 05:57] LABS: PARTIAL THROMBOPLASTIN TIME 33.5 SECONDS (26.0-37.0)
[2022-04-29 06:02] LABS: ALANINE AMINOTRANSFERASE 46 U/L (0-55); ALBUMIN 3.7 gm/dL (3.4-4.8); ALKALINE PHOSPHATASE 70 U/L (40-150); ANION GAP 11 mmol/L (7-16); AST,SGOT 36 U/L (5-34); BILIRUBIN,TOTAL 0.6 mg/dL (0.2-1.2); BLOOD UREA NITROGEN 24 mg/dL (10-20); CALCIUM 8.9 mg/dL (8.4-10.2); CARBON DIOXIDE 21 mmol/L (23-31); CHLORIDE 107 mmol/L (98-107); CREATININE, serum 1.14 mg/dL (0.57-1.11); GLUCOSE 74 mg/dL (70-99); POTASSIUM 4.2 mmol/L (3.5-4.5); SODIUM 139 mmol/L (136-145); TOTAL PROTEIN 7.5 gm/dL (6.2-8.1)
[2022-04-29 06:09] LABS: TROPONIN-I < 0.010 ng/mL (0.00-0.033)
[2022-04-29 07:01] VITALS: BP 104/65; PULSE 60
== END 2022-04-29 07:03 | disposition home or self-care (01) ==
LOC: COL.ER 05:14
PROVIDERS: Emergency Medicine
DX: Z71.1 Person with feared health complaint in whom no diagnosis is made (principal); R79.89 Other specified abnormal findings of blood chemistry; Z95.0 Presence of cardiac pacemaker
CPT/HCPCS: J7040

== ENCOUNTER 2022-06-24 13:20 | Emergency (ER) | payer MEDICARE ==
[~2022-06-24] VITALS: Ht 157.5 cm; Wt 56.4 kg
[2022-06-24 13:22] VITALS: TEMP 98.5
[2022-06-24 15:53] VITALS: BP 110/70; PULSE 63
== END 2022-06-24 15:53 | disposition home or self-care (01) ==
LOC: COL.ER 13:20
DX: S62.305A Unspecified fracture of fourth metacarpal bone, left hand, initial encounter for closed fracture (principal); S80.02XA Contusion of left knee, initial encounter; M17.12 Unilateral primary osteoarthritis, left knee; V23.49XA Other motorcycle driver injured in collision with car, pick-up truck or van in traffic accident, initial encounter; Y92.410 Unspecified street and highway as the place of occurrence of the external cause; Y93.55 Activity, bike riding

== ENCOUNTER 2022-12-02 04:50 | Emergency (ER) | payer MEDICARE ==
[~2022-12-02] VITALS: Ht 157.5 cm; Wt 57.3 kg
[~2022-12-02 04:50] MED LIST changes: +BIOFREEZE 0.2%-1 GE1 TOP
[2022-12-02 04:57] VITALS: TEMP 98.4
[2022-12-02] MEDS ORDERED: FLEXERIL5 MG PO (05:55)
[2022-12-02 06:16] VITALS: BP 121/81; PULSE 75
[2022-12-03] MEDS ORDERED: VOLTAREN GEL 1%1 TU TP (08:26)
[2022-12-07] MEDS ORDERED: NORVASC2.5 MG PO (09:16)
== END 2022-12-02 06:17 | disposition home or self-care (01) ==
LOC: COL.ER 04:50
DX: M62.838 Other muscle spasm (principal)

== ENCOUNTER 2022-12-03 07:50 | Emergency (ER) | payer MEDICARE ==
[~2022-12-03] VITALS: Ht 157.5 cm; Wt 57.3 kg
[2022-12-03 08:03] VITALS: BP 147/84; TEMP 98.2
[2022-12-03] MEDS ORDERED: VOLTAREN GEL 1%1 TU TP (08:26)
[2022-12-03 09:13] VITALS: PULSE 68
[2022-12-07] MEDS ORDERED: NORVASC2.5 MG PO (09:16)
== END 2022-12-03 09:13 | disposition home or self-care (01) ==
LOC: COL.ER 07:50
DX: M17.0 Bilateral primary osteoarthritis of knee (principal)

== ENCOUNTER 2022-12-05 14:48 | Emergency (ER) | payer MEDICARE ==
[~2022-12-05] VITALS: Ht 157.5 cm; Wt 59.1 kg
[~2022-12-05 14:48] MED LIST changes: +VOLTAREN GEL 1%1 TU TP
[2022-12-05 15:34] VITALS: BP 117/73; PULSE 72; TEMP 97.8
[2022-12-07] MEDS ORDERED: NORVASC2.5 MG PO (09:16)
== END 2022-12-05 15:34 | disposition home or self-care (01) ==
LOC: COL.ER 14:48
DX: M79.642 Pain in left hand (principal); Z87.828 Personal history of other (healed) physical injury and trauma

== ENCOUNTER 2022-12-09 03:59 | Emergency (ER) | payer MEDICARE ==
[~2022-12-09] VITALS: Ht 157.5 cm; Wt 58.6 kg
[~2022-12-09 03:59] MED LIST changes: +NORVASC2.5 MG PO
[2022-12-09 04:33] VITALS: BP 110/67; PULSE 71; TEMP 97.9
[2022-12-09] MEDS ORDERED: ULTRAM 50MG TAB50 MG PO (07:22)
== END 2022-12-09 06:15 | disposition left against medical advice (07) ==
LOC: COL.ER 03:59
DX: M79.642 Pain in left hand (principal)

== ENCOUNTER 2022-12-11 02:37 | Emergency (ER) | payer MEDICARE ==
[~2022-12-11] VITALS: Ht 157.5 cm; Wt 58.2 kg
[2022-12-11 03:45] VITALS: BP 118/77; PULSE 74; TEMP 98.7
== END 2022-12-11 03:45 | disposition home or self-care (01) ==
LOC: COL.ER 02:37
DX: S63.657A Sprain of metacarpophalangeal joint of left little finger, initial encounter (principal); W23.0XXA Caught, crushed, jammed, or pinched between moving objects, initial encounter; X50.1XXA Overexertion from prolonged static or awkward postures, initial encounter; Y92.89 Other specified places as the place of occurrence of the external cause

== ENCOUNTER 2022-12-14 23:29 | Emergency (ER) | payer MEDICARE ==
[~2022-12-14] VITALS: Ht 157.5 cm; Wt 58.2 kg
[2022-12-15 00:28] VITALS: BP 122/75; PULSE 70; TEMP 97.7
== END 2022-12-15 00:28 | disposition home or self-care (01) ==
LOC: COL.ER 23:29
DX: S90.121A Contusion of right lesser toe(s) without damage to nail, initial encounter (principal); W22.8XXA Striking against or struck by other objects, initial encounter; Y92.512 Supermarket, store or market as the place of occurrence of the external cause

== ENCOUNTER → 2022-12-28 | Outpatient (CLI) | payer MEDICARE | LOC: COL.RAD 05:40 | DX: M79.604 Pain in right leg (principal) ==

== ENCOUNTER 2023-06-29 13:11 | Emergency (ER) | payer MEDICARE ==
[~2023-06-29] VITALS: Ht 157.5 cm; Wt 58.6 kg
[2023-06-29 13:28] VITALS: BP 116/71; TEMP 98
[2023-06-29 15:29] VITALS: PULSE 61
== END 2023-06-29 15:29 | disposition home or self-care (01) ==
LOC: COL.ER 13:11
DX: S80.01XA Contusion of right knee, initial encounter (principal); M25.532 Pain in left wrist; W22.8XXA Striking against or struck by other objects, initial encounter; Y92.481 Parking lot as the place of occurrence of the external cause

== ENCOUNTER 2023-07-02 11:05 | Emergency (ER) | payer MEDICARE ==
[~2023-07-02] VITALS: Ht 157.5 cm; Wt 58.6 kg
[2023-07-02 11:12] VITALS: TEMP 97.6
[2023-07-02] MEDS ORDERED: Methocarbamol 500 MG TAB PO ONE (12:00)
[2023-07-02] MEDS ORDERED: ROBAXIN 50500 MG/TAB PO (13:12)
[2023-07-02 13:25] VITALS: BP 131/83; PULSE 60
== END 2023-07-02 14:39 | disposition home or self-care (01) ==
LOC: COL.ER 11:05
DX: S13.4XXA Sprain of ligaments of cervical spine, initial encounter (principal); W18.30XA Fall on same level, unspecified, initial encounter; Y92.481 Parking lot as the place of occurrence of the external cause

== ENCOUNTER 2023-07-04 01:33 | Emergency (ER) | payer MEDICARE ==
[~2023-07-04] VITALS: Ht 157.5 cm; Wt 58.6 kg
[~2023-07-04 01:33] MED LIST changes: +ROBAXIN 50500 MG/TAB PO
[2023-07-04 01:49] VITALS: BP 106/62; TEMP 97.8
[2023-07-04 03:50] LABS: BASO # 0.1 K/mm3 (0.0-0.2); BASO % 0.5 % (0.0-2.0); EOS # 0.2 K/mm3 (0.0-0.7); EOS % 2.3 % (0.0-4.0); GRAN # 5.3 K/mm3 (1.4-6.5); GRAN % 55.9 % (42.2-75.2); HEMATOCRIT 44.9 % (37.0-47.0); HEMOGLOBIN 14.7 g/dl (12.5-16.0); LYMPH # 2.9 K/mm3 (1.2-3.4); LYMPH % 30.1 % (20.0-51.0); MEAN CELL VOLUME 91 fl (80.0-100.0); MEAN CORPUSCULAR HEMOGLOBIN 30 pg (27-31); MEAN CORPUSCULAR HGB CONC 33 g/dl (33.0-37.0); MEAN PLATELET VOLUME 9.9 fl (7.4-10.4); MONO # 1.1 K/mm3 (0.1-0.6); PLATELET COUNT 183 K/mm3 (130-400); RED BLOOD COUNT 4.94 M/mm3 (4.10-5.30); REDCELL DISTRIBUTION WIDTH-CV 13.2 % (11.5-14.5)
[2023-07-04 04:09] LABS: ALANINE AMINOTRANSFERASE 52 U/L (0-55); ALKALINE PHOSPHATASE 84 U/L (40-150); ANION GAP 9 mmol/L (7-16); AST,SGOT 49 U/L (5-34); BILIRUBIN,TOTAL 0.7 mg/dL (0.2-1.2); BLOOD UREA NITROGEN 22 mg/dL (10-20); CALCIUM 9.7 mg/dL (8.4-10.2); CHLORIDE 106 mEq/L (98-107); CREATININE, serum 0.95 mg/dL (0.57-1.11); GLUCOSE 93 mg/dL (70-99); LIPASE 50 U/L (8-78); POTASSIUM 4.3 mEq/L (3.5-4.5); SODIUM 138 mEq/L (136-145); TOTAL PROTEIN 7.9 g/dl (6.2-8.1)
[2023-07-04 04:15] LABS: TROPONIN-I < 0.010 ng/mL (0.00-0.033)
[2023-07-04 08:50] VITALS: PULSE 61
== END 2023-07-04 08:50 | disposition home or self-care (01) ==
LOC: COL.ER 01:33
PROVIDERS: Emergency Medicine
DX: M25.562 Pain in left knee (principal); M25.561 Pain in right knee; M54.50 Low back pain, unspecified; M54.6 Pain in thoracic spine; R79.89 Other specified abnormal findings of blood chemistry

== ENCOUNTER 2023-07-06 02:10 | Emergency (ER) | payer MEDICARE ==
[~2023-07-06] VITALS: Ht 157.5 cm; Wt 58.6 kg
[2023-07-06] MEDS ORDERED: Adenosine 6 MG/2 ML VIAL IV ONE ×2 (02:45→03:00)
[2023-07-06 02:47] LABS: BASO # 0.1 K/mm3 (0.0-0.2); BASO % 0.8 % (0.0-2.0); EOS # 0.3 K/mm3 (0.0-0.7); EOS % 3.3 % (0.0-4.0); GRAN # 4.5 K/mm3 (1.4-6.5); GRAN % 45.6 % (42.2-75.2); HEMATOCRIT 43.2 % (37.0-47.0); HEMOGLOBIN 14.5 g/dl (12.5-16.0); LYMPH # 3.7 K/mm3 (1.2-3.4); LYMPH % 36.9 % (20.0-51.0); MEAN CELL VOLUME 90 fl (80.0-100.0); MEAN CORPUSCULAR HEMOGLOBIN 30 pg (27-31); MEAN CORPUSCULAR HGB CONC 34 g/dl (33.0-37.0); MEAN PLATELET VOLUME 10.1 fl (7.4-10.4); MONO # 1.3 K/mm3 (0.1-0.6); MONO % 13.1 % (1.7-9.3); PLATELET COUNT 188 K/mm3 (130-400); REDCELL DISTRIBUTION WIDTH-CV 13.1 % (11.5-14.5)
[2023-07-06 03:09] LABS: ALANINE AMINOTRANSFERASE 31 U/L (0-55); ALBUMIN 3.9 g/dL (3.4-4.8); ALKALINE PHOSPHATASE 78 U/L (40-150); ANION GAP 9 mmol/L (7-16); AST,SGOT 32 U/L (5-34); BILIRUBIN,TOTAL 0.5 mg/dL (0.2-1.2); BLOOD UREA NITROGEN 22 mg/dL (10-20); CALCIUM 9.6 mg/dL (8.4-10.2); CHLORIDE 108 mEq/L (98-107); CREATININE, serum 1.21 mg/dL (0.57-1.11); GLUCOSE 107 mg/dL (70-99); MAGNESIUM 2.2 mg/dL (1.6-2.6); SODIUM 137 mEq/L (136-145); TOTAL PROTEIN 7.7 g/dl (6.2-8.1)
[2023-07-06 03:17] LABS: TROPONIN-I < 0.010 ng/mL (0.00-0.033)
[2023-07-06 06:50] VITALS: BP 110/70; PULSE 64
== END 2023-07-06 06:53 | disposition home or self-care (01) ==
LOC: COL.ER 02:10
PROVIDERS: Emergency Medicine
DX: I48.92 Unspecified atrial flutter (principal)
CPT/HCPCS: J0153

== ENCOUNTER 2023-08-28 16:19 | Emergency (ER) | payer MEDICARE ==
[~2023-08-28] VITALS: Ht 157.5 cm; Wt 57.3 kg
[2023-08-28 16:24] VITALS: BP 150/81; TEMP 97.9
[2023-08-28] MEDS ORDERED: TOPROL XL 25MG25 MG PO (16:33)
[2023-08-28] MEDS ORDERED: BETAPACEAF120 PO (16:33)
[2023-08-28 18:00] VITALS: PULSE 61
== END 2023-08-28 17:55 | disposition home or self-care (01) ==
LOC: COL.ER 16:19
DX: S20.212A Contusion of left front wall of thorax, initial encounter (principal); W01.198A Fall on same level from slipping, tripping and stumbling with subsequent striking against other object, initial encounter

== ENCOUNTER 2023-09-04 09:31 | Emergency (ER) | payer MEDICARE ==
[~2023-09-04] VITALS: Ht 157.5 cm; Wt 56.8 kg
[~2023-09-04 09:31] MED LIST changes: +BETAPACEAF120 PO
[2023-09-04 10:01] VITALS: TEMP 97.7
[2023-09-04] MEDS ORDERED: Lidocaine 4% Topical Patch TP ONE (11:45)
[2023-09-04 13:17] VITALS: BP 96/61; PULSE 72
== END 2023-09-04 13:17 | disposition home or self-care (01) ==
LOC: COL.ER 09:31
DX: S20.212A Contusion of left front wall of thorax, initial encounter (principal); I21.3 ST elevation (STEMI) myocardial infarction of unspecified site; Z95.5 Presence of coronary angioplasty implant and graft; Z95.0 Presence of cardiac pacemaker; W22.8XXA Striking against or struck by other objects, initial encounter

== ENCOUNTER 2023-09-30 16:13 | Inpatient (IN) | payer MEDICARE ==
[~2023-09-30] VITALS: Ht 157.5 cm; Wt 57.1 kg
[~2023-09-30 16:13] MED LIST changes: +LASIX 40MG TABL40 MG PO
[2023-09-30 16:42] LABS: BASO % 0.5 % (0.0-2.0); EOS # 0.2 K/mm3 (0.0-0.7); EOS % 1.7 % (0.0-4.0); GRAN # 4.7 K/mm3 (1.4-6.5); GRAN % 53.5 % (42.2-75.2); HEMOGLOBIN 14.1 g/dl (12.5-16.0); LYMPH # 2.9 K/mm3 (1.2-3.4); MEAN CELL VOLUME 90 fl (80.0-100.0); MEAN CORPUSCULAR HEMOGLOBIN 29 pg (27-31); MEAN CORPUSCULAR HGB CONC 33 g/dl (33.0-37.0); MEAN PLATELET VOLUME 9.8 fl (7.4-10.4); MONO % 11.1 % (1.7-9.3); PLATELET COUNT 170 K/mm3 (130-400); RED BLOOD COUNT 4.79 M/mm3 (4.10-5.30); REDCELL DISTRIBUTION WIDTH-CV 13.2 % (11.5-14.5)
[2023-09-30 16:54] LABS: ALANINE AMINOTRANSFERASE 15 U/L (0-55); ALBUMIN 3.9 g/dL (3.4-4.8); ALKALINE PHOSPHATASE 81 U/L (40-150); ANION GAP 11 mmol/L (7-16); AST,SGOT 25 U/L (5-34); BILIRUBIN,TOTAL 0.6 mg/dL (0.2-1.2); BLOOD UREA NITROGEN 18 mg/dL (10-20); CALCIUM 9.4 mg/dL (8.4-10.2); CHLORIDE 111 mEq/L (98-107); GLUCOSE 93 mg/dL (70-99); POTASSIUM 4.2 mEq/L (3.5-4.5); SODIUM 143 mEq/L (136-145); TOTAL PROTEIN 7.6 g/dl (6.2-8.1)
[2023-09-30 17:00] LABS: TROPONIN-I < 0.010 ng/mL (0.00-0.033)
[2023-09-30 17:20] LABS: CREATININE, serum 0.99 mg/dL (0.57-1.11)
[2023-09-30] MEDS ORDERED: Amiodarone 450 MG in D5W Excel 250 ML IV SCH ×3 (17:24→23:24)
[2023-09-30] MEDS ORDERED: Polyethylene Glycol 3350 17 GM PDS PO PRN (18:45)
[2023-09-30] MEDS ORDERED: Ondansetron 4 MG/2 ML VIAL IV PRN (18:45)
[2023-09-30] MEDS ORDERED: Docusate Sodium 100 MG CAP PO PRN (18:45)
[2023-09-30] MEDS ORDERED: Acetaminophen 325 MG TAB PO PRN (18:45)
[2023-09-30 20:22] VITALS: BP 149/86; PULSE 62; TEMP 98
--- NOTE | 2023-09-30 22:01 | NUR ---
Received report from an ER nurse, Royal. Pt arrived on the unit at 2015. Pt is alert and the pt's vitals are stable. Amio is currently running at this time. Med. rec., pharmacy, and allergies are done along with the intake and physical assessment. Pt has some belongings with her which are reading glasses, phone, purse, home meds, and clothes. Will continue with pt care.
[2023-10-01] VITALS (8 sets, daily range): BP systolic 107–132; BP diastolic 62–87; PULSE 60–61; TEMP 97.7–98.3
[2023-10-01] MEDS ORDERED: Amiodarone 450 MG in D5W Excel 250 ML IV SCH (00:52)
[2023-10-01 06:02] LABS: CALCIUM 8.9 mg/dL (8.4-10.2); CREATININE, serum 0.84 mg/dL (0.57-1.11); POTASSIUM 3.9 mEq/L (3.5-4.5)
[2023-10-01 06:08] LABS: BASO % 0.5 % (0.0-2.0); EOS # 0.2 K/mm3 (0.0-0.7); EOS % 3.1 % (0.0-4.0); GRAN # 3.6 K/mm3 (1.4-6.5); GRAN % 57.7 % (42.2-75.2); HEMATOCRIT 41.2 % (37.0-47.0); HEMOGLOBIN 13.7 g/dl (12.5-16.0); LYMPH # 1.6 K/mm3 (1.2-3.4); LYMPH % 26.3 % (20.0-51.0); MEAN CELL VOLUME 89 fl (80.0-100.0); MEAN CORPUSCULAR HEMOGLOBIN 30 pg (27-31); MEAN CORPUSCULAR HGB CONC 33 g/dl (33.0-37.0); MEAN PLATELET VOLUME 10.1 fl (7.4-10.4); MONO # 0.7 K/mm3 (0.1-0.6); MONO % 11.9 % (1.7-9.3); PLATELET COUNT 146 K/mm3 (130-400); RED BLOOD COUNT 4.63 M/mm3 (4.10-5.30); REDCELL DISTRIBUTION WIDTH-CV 13.2 % (11.5-14.5)
--- NOTE | 2023-10-01 06:08 | NUR ---
Pt had an uneventful night. Vitals were stable throughout the night. Amio is currently running at this time. Pt is currently resting in bed with the call light within reach and bed alarms on and bed in low postition. Will give report to day shift nurse.
[2023-10-01 06:23] LABS: THYROID STIMULATING HORMONE 3.216 uIU/mL (0.350-4.940)
--- NOTE | 2023-10-01 08:45 | NUR ---
INTRODUCED SELF TO PT, PT RESPONDED VERBALY. PT AAO X4. RESP CLEAR AND UNLABOURED. BOWEL SOUNDS PRESENT. NORMAL S1 AND S2 HEART SOUNDS NOTED. ABD NONRIDGID AND NON DISTENDED. CMS NORMAL NO DEVIATION. NEUROCHECK IS WNL. PT NOTED TO HAVE 20G IV IN RIGHT AC. WITH AMNIODARONE INFUSING. IV PATIENT AND INFUSING. FLUSHED WITH 5ML OF SALINE. PT GIVEN MORNING MEDICATIONS AND EDUCATED TO THEIR IMPORTANCE. PT LEFT IN ROOM RESTING COMFORTABLY WATCHING TV WITH NO QUESTIONS OR CONCERNS CALL LIGHT IN REACH WITH BED ALARMS ON.
[2023-10-01] MEDS ORDERED: Furosemide 20 MG TAB PO SCH (09:00)
[2023-10-01] MEDS ORDERED: Spironolactone 25 MG TAB PO SCH (09:00)
--- NOTE | 2023-10-01 14:45 | NUR ---
report called to socorro GARCIA. RN has some great question which this RN answered. pt transfered to ms floorbedside handoff report with ms RN done.
--- NOTE | 2023-10-01 15:02 | NUR ---
Patient arrived to the medical unit, alert and oriented x 4, Getting amiodarone gtt per orders. Telemetry in place.
--- NOTE | 2023-10-01 15:42 | NUR ---
green end worker met with patient to complete the initial discharge planning assessment. Patient states she lives alone and will return home. Patient states that she is independent with her activities of daily living and she rides her bike about 6 miles daily. Patient's primary care provider is Dr Iraheta and patient confirms that she has Medicare [employer]. Patient states that her insurance covers the cost of her medications. Patient stated she had several children and that [place] #[phone] is her point of contact. Worker provided written and verbal information on advance directives and offered to assist with completion if patient desired. Discharge Plan: home.
[2023-10-01] MEDS ORDERED: Amiodarone 200 MG TAB PO SCH (16:00)
--- NOTE | 2023-10-01 16:15 | NUR ---
Call placed to Tamir Philippe, to verify time to stop amiodaron GTT. He asked to do it at 1700. Pt taking PO dose per orders now.
[2023-10-02] MEDS ORDERED: Amiodarone 200 MG TAB PO SCH
[2023-10-02 04:00] VITALS: BP 111/61; PULSE 60; TEMP 98.1
[2023-10-02 04:05] VITALS: BP_SYST 111
--- NOTE | 2023-10-02 06:30 | NUR ---
PT RESTING IN BED. PT IS ON RA. PT IS PACED ON TELE. PT IS AXOX4. PT HAS CALL LIGHT WITHIN REACH AND INSTRUCTED TO CALL WITH ALL NEEDS. 0745-PT STATES HER RIGHT AC IS SLIGHTLY SWOLLEN AND SORE FROM PREVIOUS IV. ARM ELEVATED AND ICE PACK PLACED.
[2023-10-02 07:21] VITALS: BP 113/66; PULSE 59; TEMP 98.1
[2023-10-02 09:00] VITALS: BP_SYST 113
[2023-10-02 11:06] VITALS: BP 100/66; PULSE 63; TEMP 98
[2023-10-02] MEDS ORDERED: CORDARONE200 MG/TAB PO (12:41)
[2023-10-02] MEDS ORDERED: ASPIRIN 81M81 MG/TA2 PO (12:41)
--- NOTE | 2023-10-02 13:50 | NUR ---
Iv and tele removed. Amiodarone doses for today, tomorrow, and wednesday morning provided by pharmacy, Pt unable to waste picker scripts till wednesday. Discharge instructions discusse with pt. All questions answered. Pt awaiting ride, will call when ready.
--- NOTE | 2023-10-02 14:10 | NUR ---
PT WHEELED OUT FOR DISCHARGE BY [facility].
[2023-10-08] MEDS ORDERED: Amiodarone 200 MG TAB PO SCH (21:00)
[2023-10-16] MEDS ORDERED: Amiodarone 200 MG TAB PO SCH (09:00)
== END 2023-10-02 14:10 | disposition home or self-care (01) | DRG 309 ==
LOC: COL.ER 16:13 → MEDICAL 18:44 → ICU 18:44 → MEDICAL 10-01 14:52
PROVIDERS: Emergency Medicine; ADMIT Internal Medicine
DX: I47.20 Ventricular tachycardia, unspecified (principal); I50.22 Chronic systolic (congestive) heart failure; E78.5 Hyperlipidemia, unspecified; I25.5 Ischemic cardiomyopathy; I11.0 Hypertensive heart disease with heart failure; I25.10 Atherosclerotic heart disease of native coronary artery without angina pectoris; Z95.810 Presence of automatic (implantable) cardiac defibrillator; Z95.5 Presence of coronary angioplasty implant and graft; Z85.828 Personal history of other malignant neoplasm of skin; Z98.51 Tubal ligation status; I25.2 Old myocardial infarction; Z88.0 Allergy status to penicillin; Z88.7 Allergy status to serum and vaccine; Z88.8 Allergy status to other drugs, medicaments and biological substances; Z88.6 Allergy status to analgesic agent; Z88.1 Allergy status to other antibiotic agents; Z91.041 Radiographic dye allergy status; Z91.148 Patient's other noncompliance with medication regimen for other reason; Z79.82 Long term (current) use of aspirin; Z79.899 Other long term (current) drug therapy
CPT/HCPCS: J0282; J1650; J7060